=== PATIENT | female | born 1960 | race Caucasian/White ===

== ENCOUNTER 2022-08-19 12:56 | Outpatient (REF) | payer MEDICAID, SELFPAY ==
--- NOTE | ~2022-08-19 | MM_ITS ---
EXAMINATION: MM SCREENING DIGITAL BREAST TOMOSYNTHESIS, BILATERAL CLINICAL INFORMATION: Screening. Asymptomatic. The lifetime risk of breast cancer based on the Tyrer-Cuzick Model is 4%. COMPARISON: Mammography: 07/16/2018, 02/14/2017, 08/14/2015 TECHNIQUE: Digital breast tomosynthesis is performed in both the craniocaudal and mediolateral oblique views along with computer-aided detection (CAD). Synthesized 2D images are generated from the tomosynthesis. FINDINGS: There are scattered areas of fibroglandular density (ACR BI-RADS breast composition Category b). Parenchymal pattern is similar to prior studies. There is no developing density or interval mass or architectural abnormality or abnormal calcifications. Small nodular asymmetry anterior upper right breast on MLO view is stable to decreased. The axilla and skin contours are unremarkable. No significant changes. MM/MM tomosynthesis screening BI IMPRESSION: No mammographic evidence of malignancy. ASSESSMENT: BI-RADS 2: Benign RECOMMENDATION: Routine annual mammography screening. This patient's information was entered into a reminder system with a target due date for their next mammogram.
== END 2022-08-19 12:57 | disposition home or self-care (01) ==
LOC: HO.MAMMO 12:56
PROVIDERS: Visit Provider Family Medicine
DX: Z12.31 Encounter for screening mammogram for malignant neoplasm of breast (principal)
CPT/HCPCS: 77063; 77067

== ENCOUNTER 2023-09-15 09:28 | Outpatient (REF) | payer MEDICAID, SELFPAY ==
--- NOTE | ~2023-09-15 | MM_ITS ---
EXAMINATION: MM SCREENING DIGITAL BREAST TOMOSYNTHESIS, BILATERAL CLINICAL INFORMATION: Screening. Asymptomatic. COMPARISON: Mammography: This study is compared with prior exams dating back to 15 a TECHNIQUE: Digital breast tomosynthesis is performed in both the craniocaudal and mediolateral oblique views along with computer-aided detection (CAD). Synthesized 2D images are generated from the tomosynthesis. FINDINGS: The breasts are almost entirely fatty (ACR BI-RADS breast composition Category a). There are no significant masses, abnormal calcifications, or other abnormalities. MM/MM tomosynthesis screening BI IMPRESSION: No mammographic evidence of malignancy. ASSESSMENT: BI-RADS BI-RADS 1 - Negative RECOMMENDATION: Routine annual mammography screening. 1 year F/U This examination should not preclude the clinical evaluation of a suspicious palpable abnormality. This patient's information was entered into a reminder system with a target due date for their next mammogram.
== END 2023-09-15 09:29 | disposition home or self-care (01) ==
LOC: HO.MAMMO 09:28
PROVIDERS: Visit Provider Family Medicine
DX: Z12.31 Encounter for screening mammogram for malignant neoplasm of breast (principal)
CPT/HCPCS: 77063; 77067

== ENCOUNTER → 2023-09-15 10:15 | Outpatient (BNV) | payer MEDICAID, SELFPAY | PROVIDERS: Visit Provider Radiology Diagnostic Radiology | DX: Z12.31 Encounter for screening mammogram for malignant neoplasm of breast (principal) | CPT/HCPCS: 77063; 77067 ==

== ENCOUNTER 2024-03-22 22:54 | Emergency (ER) | payer OTHER, SELFPAY ==
[2024-03-22 23:06] VITALS: BP 160/68; PULSE 90; O2SAT 97
[2024-03-22 23:12] VITALS: BP 153/74; PULSE 89; RESP 17; TEMP 36.8; O2SAT 98
[2024-03-22 23:14] VITALS: BP 153/74; PULSE 79; RESP 16; TEMP 36.8; O2SAT 96; BMI 25.0
--- NOTE | 2024-03-22 23:49 | ECG_ITS ---
Test Reason : dizzy Blood Pressure : / mmHG Vent. Rate : 075 BPM Atrial Rate : 075 BPM P-R Int : 170 ms QRS Dur : 076 ms QT Int : 388 ms P-R-T Axes : 054 056 055 degrees QTc Int : 433 ms Normal sinus rhythm Normal ECG When compared with ECG of 31-JUL-2017 19:52, No significant change was found Referred By: Janki Mcginnis Electronically Signed By:ARIN ODOM
--- NOTE | 2024-03-22 23:50 | ED_ITS ---
HPI - General Adult General Chief complaint: General Medical Stated complaint: HTN Time Seen by Provider: 03/22/24 23:16 History of Present Illness HPI narrative: Patient is a 64-year-old female with a history of hypertension. Baseline is on lisinopril for hypertension. Patient has been compliant with his medications. Presented today with having measure her own blood pressure the top number was 160 she forgot the bottom number. Because of the elevated blood pressure she came to the ED she also complaining of some dry mouth. There is no chest pain has no headache. There has no dizziness. There has no nausea no vomiting no focal weakness. Patient's blood pressure medicine has been unchanged. She has been compliant with her meds. Related Data Allergies Allergy/AdvReac Type Severity Reaction Status Date / Time iodine [Iodine] Allergy Mild UNKNOWN Verified 03/22/24 23:16 merbromin Allergy Mild BLISTERS Verified 03/22/24 23:16 [From Mercurochrome] calamine [CALAMINE] Allergy Unknown UNKNOWN Verified 03/22/24 23:16 Review of Systems 2 Review of Systems: Positive headache Yes all other systems are reviewed and are negative [facility] Past Medical History Attestation statement: The following information was validated with the patient. Social History Social History Do you have a plan to hurt others: No Plan Physical Exam ED Vital Signs: Vital Signs - 24 hr 03/22/24 23:12 03/22/24 23:14 03/23/24 00:38 Temperature 98.2 F 98.2 F 98.2 F Pulse Rate 89 79 73 Respiratory Rate 17 16 17 Blood Pressure 153/74 H 153/74 H 139/73 Pulse Oximetry 98 96 99 Oxygen Delivery Method Room Air Room Air Room Air BMI result Body Mass Index 25.0 Appearance: Alert. Oriented X3. No acute distress. Eyes: Pupils equal, round and reactive to light. ENT: Pharynx normal. Neck: Normal inspection. Neck supple. No lymph nodes noted. No crepitus CVS: Normal heart rate and rhythm. Pulses normal. Normal S1 and S2 Respiratory: No respiratory distress. Breath sounds normal. No Wheezing. No rales Abdomen: Soft and nontender. No rigidity. No distention. good BS x4 Skin: Skin warm and dry. Normal skin color. Normal skin turgor. Extremities: No lower extremity edema. Neurovascular intact to all extremities. No Lacerations. No Rash Neuro: Oriented X 3. No motor deficit. No sensory deficit. Moving all extermities. No slurred speech Medical Decision Making Medical Decision Making [facility] Narrative: Patient monitored in the emergency department. Creatinine is normal. White count is normal hemoglobin is normal my interpretation of patient's EKG showed a sinus rhythm heart rate is 70 OR QRS QTC normal no acute ST segment elevation. On recheck patient's blood pressure is now 139/74 will discharge patient home continue current med Differential Diagnosis Differential Diagnoses: The differential diagnosis associated with the presentation includes Hypertensive urgency hypertensive emergency, hypertension Lab Data [facility] Lab Attestation statement: I reviewed the patient's lab results. 03/23/24 00:10 03/23/24 00:10 Labs: Lab Results 03/23/24 Range/Units 00:10 WBC 9.7 (4.8-10.8) X10*3/uL RBC 4.28 (4.20-5.50) X10*6/uL Hgb 11.9 L (12.0-16.0) g/dl Hct 36.7 L (37.0-47.0) % MCV 85.7 (80.0-98.0) fL MCH 27.8 (27.0-33.0) pg MCHC 32.4 (31.0-35.0) g/dl RDW 12.9 (11.0-16.0) % Plt Count 362 (160-400) X10*3/uL MPV 10.0 (9.4-12.3) fL Immature Gran % (Auto) 0.9 H (0.0-0.4) % Neut % (Auto) 68.6 (45-73) % Lymph % (Auto) 19.8 L (20-40) % Bremer % (Auto) 8.4 (2-11) % Eos % (Auto) 1.7 (0-4) % Baso % (Auto) 0.6 (0-2) % Lymph # (Auto) 1.9 (1.2-4.9) X10*3/uL Bremer # (Auto) 0.8 (0.1-1.2) X10*3/uL Eos # (Auto) 0.2 (0.0-0.4) X10*3/uL Baso # (Auto) 0.1 (0.0-0.2) X10*3/uL Abs Immat Gran (auto) 0.09 H (0.00-0.03) X10*3/uL Absolute Neuts (auto) 6.6 (2.0-8.3) x10*3/uL Absolute Nucleated RBC 0.000 (0.0-0.012) X10*3/uL Nucleated RBC % (auto) 0.0 (0.0-0.2) /100WBC Sodium 139 (135-145) mmol/L Potassium 3.9 (3.3-5.1) mmol/L Chloride 106 (96-108) mmol/L Carbon Dioxide 24 (22-29) mmol/L Anion Gap 13 (12-20) BUN 18 H (9-16) mg/dL Creatinine 0.81 (0.5-1.4) mg/dL Estim Creat Clear Calc 62.3 Estimated GFR > 60 Random Glucose 203 H (60-115) mg/dL Calcium 9.6 (8.4-10.2) mg/dL Independent Interpretation I performed an independent interpretation of an: EKG (Sinus heart rate is 70 OR QRS QTC normal no acute ST segment elevation) Chronic Conditions Patient?s care impacted by: Other (Hypertension, hypercholesterolemia, diabetes) Discharge Plan Discharge Clinical Impression: Hypertension Patient Disposition: Home, Self-Care Instructions: Hypertension (ED) Additional Instructions: Please continue to take your blood pressure medicine Referrals: [facility] [Provider Group] - 03/25/24 Print Language: Belizean
[2024-03-23 00:18] LABS: MANUAL DIFF FLAG NO
[2024-03-23 00:21] LABS: Basophils Absolute Auto 0.1 X10*3/uL (0.0-0.2); Basophils Percent Auto 0.6 % (0-2); Eosinophils Absolute Auto 0.2 X10*3/uL (0.0-0.4); Eosinophils Percent Auto 1.7 % (0-4); Hematocrit 36.7 % (37.0-47.0); Hemoglobin 11.9 g/dl (12.0-16.0); Imm Gran Abs Auto 0.09 X10*3/uL (0.00-0.03); Imm Gran Pct Auto 0.9 % (0.0-0.4); Lymphocytes Absolute Auto 1.9 X10*3/uL (1.2-4.9); Lymphocytes Percent Auto 19.8 % (20-40); Mean Corpuscular HGB Conc 32.4 g/dl (31.0-35.0); Mean Corpuscular Hemoglobin 27.8 pg (27.0-33.0); Mean Corpuscular Volume 85.7 fL (80.0-98.0); Monocytes Absolute Auto 0.8 X10*3/uL (0.1-1.2); Monocytes Percent Auto 8.4 % (2-11); Neutrophils Absolute Auto 6.6 x10*3/uL (2.0-8.3); Neutrophils Percent Auto 68.6 % (45-73); Platelet Count 362 X10*3/uL (160-400); Red Blood Count 4.28 X10*6/uL (4.20-5.50); Red Cell Distribution Width 12.9 % (11.0-16.0); White Blood Count 9.7 X10*3/uL (4.8-10.8)
[2024-03-23 00:32] LABS: Anion Gap 13 (12-20); Blood Urea Nitrogen 18 mg/dL (9-16); Calcium 9.6 mg/dL (8.4-10.2); Carbon Dioxide 24 mmol/L (22-29); Chloride 106 mmol/L (96-108); Creatinine Clr Calc Pharmacy 62.3; Estimated Glomerular Filt Rate > 60; Glucose Random 203 mg/dL (60-115); Potassium 3.9 mmol/L (3.3-5.1); Sodium 139 mmol/L (135-145)
[2024-03-23 00:38] VITALS: BP 139/73; PULSE 73; RESP 17; TEMP 36.8; O2SAT 99
[2024-03-23 01:56] VITALS: BP 141/69; PULSE 77; RESP 14; TEMP 36.5; O2SAT 98
== END 2024-03-23 01:40 | disposition home or self-care (01) ==
PROVIDERS: Emergency Provider Emergency Medicine Emergency Medical Services
DX: I10 Essential (primary) hypertension (principal); R51.9 Headache, unspecified; E11.9 Type 2 diabetes mellitus without complications; E78.00 Pure hypercholesterolemia, unspecified
CPT/HCPCS: 36415; 80048; 85025; 93005; 99283; 99284

== ENCOUNTER → 2024-03-22 23:49 | Outpatient (BNV) | payer MEDICARE, MEDICAID, SELFPAY | PROVIDERS: Emergency Provider Emergency Medicine Emergency Medical Services; Visit Provider Internal Medicine | DX: R42 Dizziness and giddiness (principal) | CPT/HCPCS: 93010 ==

== ENCOUNTER 2024-05-14 09:20 | Outpatient (REF) | payer OTHER, SELFPAY ==
--- NOTE | 2024-05-14 09:38 | EMG_ITS ---
Bilateral median and ulnar motor and sensory studies were performed. Bilateral radial sensory studies were performed and paraspinal muscles were tested with a needle. IMPRESSION: This is an unremarkable study with no evidence of median or ulnar neuropathy. MD SIGIFREDO Hernandez/LIDIA / [id number]
== END 2024-05-14 09:21 | disposition home or self-care (01) ==
LOC: HO.NEURO 09:20
PROVIDERS: PCP Family Medicine; Visit Provider Family Medicine
DX: R20.2 Paresthesia of skin (principal)
CPT/HCPCS: 95886; 95911

== ENCOUNTER 2024-05-15 07:58 | Outpatient (REF) | payer OTHER, SELFPAY ==
[2024-05-15 11:55] LABS: Hematocrit 39.8 % (37.0-47.0); Hemoglobin 12.9 g/dl (12.0-16.0); Mean Corpuscular HGB Conc 32.4 g/dl (31.0-35.0); Mean Corpuscular Hemoglobin 27.9 pg (27.0-33.0); Mean Platelet Volume 10.6 fL (9.4-12.3); Platelet Count 396 X10*3/uL (160-400); Red Blood Count 4.63 X10*6/uL (4.20-5.50); Red Cell Distribution Width 13.3 % (11.0-16.0); White Blood Count 6.8 X10*3/uL (4.8-10.8)
[2024-05-15 12:31] LABS: Estimated Average Glucose 166 mg/dL; Hemoglobin A1c % 7.4 % (<6.0)
[2024-05-15 12:43] LABS: Erythrocyte Sedimentation Rate 17 MM/HR (0-20); Rheumatoid Factor < 13.0 IU/mL (<15.0)
[2024-05-15 12:50] LABS: Alanine Aminotransferase 16 U/L (0-31); Albumin Level 4.4 g/dL (3.5-5.0); Alkaline Phosphatase 68 U/L (39-117); Anion Gap 16 (12-20); Aspartate Amino Transferase 18 U/L (5-31); Bilirubin Direct 0.2 mg/dL (0.0-0.5); Bilirubin Total 0.4 mg/dL (0.0-1.0); Blood Urea Nitrogen 14 mg/dL (9-16); C Reactive Protein 0.31 mg/dL (< or = 0.50); Calcium 9.8 mg/dL (8.4-10.2); Carbon Dioxide 23 mmol/L (22-29); Chloride 106 mmol/L (96-108); Cholesterol 183 mg/dL (<200); Estimated Glomerular Filt Rate > 60; Glucose Random 138 mg/dL (60-115); HDL Cholesterol 48 mg/dL (>40); LDL Cholesterol Calculated 98 mg/dL (<100); Potassium 4.1 mmol/L (3.3-5.1); Sodium 141 mmol/L (135-145); Total Protein 7.6 g/dL (6.5-8.0); Triglycerides 188 mg/dL (<150)
[2024-05-15 12:57] LABS: Free T4 (Free Thyroxine) 1.04 ng/dL (0.71-1.85); Thyroid Stimulating Hormone 2.15 uIU/mL (0.32-4.0); Vitamin D 25-OH Total 48.2 ng/mL (>30)
[2024-05-16 04:57] LABS: HBS Num1 10.34 mIU/mL (0-7.99); HBsAGNum1 0.23 S/CO (0.00-0.99); HIV AB/AG Nonreactive (Nonreactive); HIV Num 1 0.06 S/CO (0.00-0.99); Hepatitis B Surface Antigen Negative (Negative); ~HepC Num1 0.24 S/CO (0.00-0.79); ~Hepatitis C Antibody Nonreactive (Nonreactive)
[2024-05-16 05:11] LABS: Hepatitis A Antibody IgG REACTIVE (Nonreactive); ~Hepatitis A Antibody IgG 11.88 S/CO (0.00-0.99)
[2024-05-16 05:39] LABS: HBS Num2 10.44 mIU/mL (0-7.99); HBS Num3 11.13 mIU/mL (0-7.99); HBc Num2 3.65 S/CO; Hepatitis B Core Antibody Reactive (Nonreactive); ~Hepatitis B Surface Antibody GRAYZONE (Nonreactive)
[2024-05-16 10:58] LABS: Lyme Abs Screen <0.90 index
[2024-05-17 08:43] LABS: RPR Rapid Plasma Reagin NON-REACTIVE (NON-REACTIVE)
[2024-05-17 22:14] LABS: Hepatitis B Core Antibody IgM NON-REACTIVE (NON-REACTIVE)
[2024-05-20 14:13] LABS: Anti Nuclear Antibody Screen NEGATIVE (NEGATIVE)
== END 2024-05-15 07:59 | disposition home or self-care (01) ==
LOC: HO.HHCL 07:58
PROVIDERS: Visit Provider Family Medicine
DX: Z00.00 Encounter for general adult medical examination without abnormal findings (principal); E11.69 Type 2 diabetes mellitus with other specified complication; M25.50 Pain in unspecified joint
CPT/HCPCS: 36415; 80048; 80061; 80076; 82306; 83036; 84439; 84443; 85027; 85652; 86038; 86140; 86431; 86592; 86617; 86618; 86704; 86705; 86706; 86708; 86803; 87340; 87389

== ENCOUNTER 2024-06-03 10:51 | Outpatient (REF) | payer OTHER, SELFPAY ==
--- NOTE | ~2024-06-03 | XR_ITS ---
EXAMINATION: XR LUMBAR SPINE XR LEFT KNEE XR RIGHT KNEE XR LEFT HAND XR RIGHT HAND CLINICAL INFORMATION: Polyarthralgia. Worsening hand, knee and low back pain. COMPARISON: 04/15/2019 and 01/17/2019 TECHNIQUE: PA, lateral and oblique views of each hand were obtained. AP, lateral, sunrise and tunnel views of each knee were obtained. AP and lateral views of the lumbar spine were obtained. FINDINGS: Bilateral hands: Alignment is anatomic. Mild diffuse interphalangeal joint space narrowing with marginal osteophytes. No bony erosions. No abnormal soft tissue calcifications. No change in possible old fracture deformity of left fifth metacarpal. Bilateral knees: Mild to moderate lateral tibiofemoral and patellofemoral cartilage space loss with marginal kidneys. Quadriceps tendon enthesophytes. No significant joint effusion. Lumbar spine: There are 5 nonrib-bearing lumbar vertebral bodies. Normal sagittal alignment. Vertebral body heights are maintained. Intervertebral disc spaces are preserved. Surgical clips project over the right upper quadrant. XR/XR hand RT min 3V IMPRESSION: As above.
--- NOTE | ~2024-06-03 | XR_ITS ---
EXAMINATION: XR LUMBAR SPINE XR LEFT KNEE XR RIGHT KNEE XR LEFT HAND XR RIGHT HAND CLINICAL INFORMATION: Polyarthralgia. Worsening hand, knee and low back pain. COMPARISON: 04/15/2019 and 01/17/2019 TECHNIQUE: PA, lateral and oblique views of each hand were obtained. AP, lateral, sunrise and tunnel views of each knee were obtained. AP and lateral views of the lumbar spine were obtained. FINDINGS: Bilateral hands: Alignment is anatomic. Mild diffuse interphalangeal joint space narrowing with marginal osteophytes. No bony erosions. No abnormal soft tissue calcifications. No change in possible old fracture deformity of left fifth metacarpal. Bilateral knees: Mild to moderate lateral tibiofemoral and patellofemoral cartilage space loss with marginal kidneys. Quadriceps tendon enthesophytes. No significant joint effusion. Lumbar spine: There are 5 nonrib-bearing lumbar vertebral bodies. Normal sagittal alignment. Vertebral body heights are maintained. Intervertebral disc spaces are preserved. Surgical clips project over the right upper quadrant. XR/XR knee LT 4V IMPRESSION: As above.
--- NOTE | ~2024-06-03 | XR_ITS ---
EXAMINATION: XR LUMBAR SPINE XR LEFT KNEE XR RIGHT KNEE XR LEFT HAND XR RIGHT HAND CLINICAL INFORMATION: Polyarthralgia. Worsening hand, knee and low back pain. COMPARISON: 04/15/2019 and 01/17/2019 TECHNIQUE: PA, lateral and oblique views of each hand were obtained. AP, lateral, sunrise and tunnel views of each knee were obtained. AP and lateral views of the lumbar spine were obtained. FINDINGS: Bilateral hands: Alignment is anatomic. Mild diffuse interphalangeal joint space narrowing with marginal osteophytes. No bony erosions. No abnormal soft tissue calcifications. No change in possible old fracture deformity of left fifth metacarpal. Bilateral knees: Mild to moderate lateral tibiofemoral and patellofemoral cartilage space loss with marginal kidneys. Quadriceps tendon enthesophytes. No significant joint effusion. Lumbar spine: There are 5 nonrib-bearing lumbar vertebral bodies. Normal sagittal alignment. Vertebral body heights are maintained. Intervertebral disc spaces are preserved. Surgical clips project over the right upper quadrant. XR/XR knee RT 4V IMPRESSION: As above.
--- NOTE | ~2024-06-03 | XR_ITS ---
EXAMINATION: XR LUMBAR SPINE XR LEFT KNEE XR RIGHT KNEE XR LEFT HAND XR RIGHT HAND CLINICAL INFORMATION: Polyarthralgia. Worsening hand, knee and low back pain. COMPARISON: 04/15/2019 and 01/17/2019 TECHNIQUE: PA, lateral and oblique views of each hand were obtained. AP, lateral, sunrise and tunnel views of each knee were obtained. AP and lateral views of the lumbar spine were obtained. FINDINGS: Bilateral hands: Alignment is anatomic. Mild diffuse interphalangeal joint space narrowing with marginal osteophytes. No bony erosions. No abnormal soft tissue calcifications. No change in possible old fracture deformity of left fifth metacarpal. Bilateral knees: Mild to moderate lateral tibiofemoral and patellofemoral cartilage space loss with marginal kidneys. Quadriceps tendon enthesophytes. No significant joint effusion. Lumbar spine: There are 5 nonrib-bearing lumbar vertebral bodies. Normal sagittal alignment. Vertebral body heights are maintained. Intervertebral disc spaces are preserved. Surgical clips project over the right upper quadrant. XR/XR lumbar spine 2-3V IMPRESSION: As above.
--- NOTE | ~2024-06-03 | XR_ITS ---
EXAMINATION: XR LUMBAR SPINE XR LEFT KNEE XR RIGHT KNEE XR LEFT HAND XR RIGHT HAND CLINICAL INFORMATION: Polyarthralgia. Worsening hand, knee and low back pain. COMPARISON: 04/15/2019 and 01/17/2019 TECHNIQUE: PA, lateral and oblique views of each hand were obtained. AP, lateral, sunrise and tunnel views of each knee were obtained. AP and lateral views of the lumbar spine were obtained. FINDINGS: Bilateral hands: Alignment is anatomic. Mild diffuse interphalangeal joint space narrowing with marginal osteophytes. No bony erosions. No abnormal soft tissue calcifications. No change in possible old fracture deformity of left fifth metacarpal. Bilateral knees: Mild to moderate lateral tibiofemoral and patellofemoral cartilage space loss with marginal kidneys. Quadriceps tendon enthesophytes. No significant joint effusion. Lumbar spine: There are 5 nonrib-bearing lumbar vertebral bodies. Normal sagittal alignment. Vertebral body heights are maintained. Intervertebral disc spaces are preserved. Surgical clips project over the right upper quadrant. XR/XR hand LT min 3V IMPRESSION: As above.
== END 2024-06-03 10:52 | disposition home or self-care (01) ==
LOC: HO.HHCX 10:51
PROVIDERS: Visit Provider Family Medicine
DX: M54.50 Low back pain, unspecified (principal); M25.561 Pain in right knee; M25.562 Pain in left knee; M79.642 Pain in left hand; M79.641 Pain in right hand
CPT/HCPCS: 72100; 73130; 73564

== ENCOUNTER 2024-06-25 09:48 | Outpatient (REF) | payer OTHER, SELFPAY ==
[2024-06-25 13:18] LABS: CT PCR NOT DETECTED (Not Detect.); NG PCR NOT DETECTED (Not Detect.)
== END 2024-06-25 09:49 | disposition home or self-care (01) ==
LOC: HO.HHCL 09:48
PROVIDERS: Visit Provider Family Medicine
DX: Z00.00 Encounter for general adult medical examination without abnormal findings (principal)
CPT/HCPCS: 87491; 87591

== ENCOUNTER 2025-07-31 14:19 | Outpatient (REF) | payer OTHER, SELFPAY ==
--- NOTE | ~2025-07-31 | XR_ITS ---
EXAMINATION: XR RIBS, LEFT CLINICAL INFORMATION: fall 1 week ago , left anterior axillary pain. COMPARISON: 04/16/2019. TECHNIQUE: PA chest, and 3 views of the left ribs were obtained. FINDINGS: Lungs are clear. No consolidation, pneumothorax, or pleural effusion. The cardiomediastinal silhouette and pulmonary vasculature are normal. Osseous structures are unremarkable. Ribs are intact. No acute fractures are identified. Old healed left ninth rib fracture noted. XR/XR ribs LT min 3V w CXR1V IMPRESSION: The lungs are clear. There are no acute findings in the thorax. The ribs appear intact. Electronically signed by: Rusty Pierce MD 07/31/2025 03:11 PM EDT
== END 2025-07-31 14:20 | disposition home or self-care (01) ==
LOC: HO.HHCX 14:19
PROVIDERS: Visit Provider Nurse Practitioner Family
DX: Z91.81 History of falling (principal)
CPT/HCPCS: 71101

== ENCOUNTER → 2025-07-31 14:19 | Outpatient (BNV) | payer OTHER, SELFPAY | PROVIDERS: Visit Provider Radiology Diagnostic Radiology | DX: M79.622 Pain in left upper arm (principal); W19.XXXA Unspecified fall, initial encounter | CPT/HCPCS: 71101 ==

== ENCOUNTER 2025-08-22 10:15 | Outpatient (REF) | payer OTHER, SELFPAY ==
--- OUTSIDE RECORDS SUMMARY | 2025-08-20 11:00 | XMS_ITS | Encounter Summary ---
Author Organization [employer] Address [address] [place] [address] Care Team Providers Care Edge Runner Name Role Phone Rosibel Walker DO Primary Care Provider Maribell Gan PharmD Unavailable [phone] Reason for Visit * Reason Comments Headache Encounter Details Date Type Department Care Team ([facility] st Contact Info) Description 08/20/2025 11:00 AM EDT Office Visit [facility] [address] [place] [address] Beau Kumar MD [address] [place] [address] Type 2 diabetes mellitus without complication, without long-term current use of insulin (HCC) (Primary Dx); Insomnia, unspecified type; Low glucose level; Acute intractable headache, unspecified headache type Social History Tobacco Use Types Packs/Day Years Used Date Smoking Tobacco: Never Passive Smoke Exposure: Never Smokeless Tobacco: Never Tobacco Cessation:Counseling Given: Not Answered Alcohol Use Standard Drinks/Week Comments Defer 0 (1 standard drink = 0.6 oz pur e alcohol) Depression Answer Date Recorded Patient Health Questionnaire-9 Score 16 03/28/2025 Patient Health Questionnaire-9 Score 16 03/28/2025 Last PHQ-9: Questionnaire Data Not on file 0 03/28/2025 Housing Stability Answer Date Recorded What is your housing situation today? I have lucas holland 05/08/[address] you li ve. Do you have problems with any of the following? None of the above 05/08/2024 Food Insecurity Answer Date Recorded Within the past 12 months, y ou worried that your food would run out before you got money to buy more: Never True 05/08/2024 Within the past 12 months,th e food you bought just didn't last and you didn't have enough money to get more: Never True Transportation Answer Date Recorded In the past 12 months, has l ack of transportation kept you from medical appts, meetings, work or from getting things needed for daily living? No 05/08/2024 Utilities Answer Date Recorded In the past 12 months, has t he electric, gas, oil or water company threatened to shut off services in your home? No 05/08/2024 Depression Answer Date Recorded Patient Health Questionnaire-2 Score 3 03/28/2025 Internet Access Answer Date Recorded Internet Access Q1 Yes 06/21/2024 Internet Access Q2 Not on file 06/21/2024 Comments No Sex and Gender Information Value Date Recorded Sex Assigned at Female 08/22/2022 10:17 AM EDT Legal Sex Female 10:17 AM EDT Gender Identity Female 08/22/2022 10:17 AM EDT Sexual Orientation Straight 08/22/2022 10 :17 AM EDT documented as of this encounter Last Filed Vital Signs Vital Sign Reading Time Taken Comments Blood Pressure 146/80 08/20/2025 11:03 AM EDT Pulse 92 08/20/2025 11:03 AM EDT Temperature 36.7 C (98 F) 08/20/2025 11:03 AM EDT Respiratory Rate 16 08/20/2025 11:03 AM EDT Oxygen Saturation 96% 08/20/2025 11:03 AM EDT Inhaled Oxygen Concentration - - Weight 68.5 kg (151 lb) 08/20/2025 11:03 AM EDT Height - - Body Mass Index 31.56 07/31/2025 1:24 PM EDT documented in this encounter Progress Notes * Beau Kumar MD - 08/20/2025 11:00 AM EDT Subjective Patient ID: Magalis Brown is a 65 y.o. female. Processing Tech: Jensen VIVAR 2 days ago woke at 3 AM, checked CGM=69. Last night Magalis woke at 3 AM, checked her CGM=68. Has had diffuse headache since waking 2 days ago. States that she thinks her headaches are from lack of sleep, which has happened before. No fever, chills, n/v/d. CGM =199 now in [facility] POC KV=251 now in [facility] Lives alone. Not employed. Never smoked. No EtOH. Patient Active Problem List Diagnosis Date Noted Rib pain on left side 08/01/2025 Fall 08/01/2025 Ill-fitting dentures 11/07/2024 Healthcare maintenance 11/06/2024 Moderate atrophy of the maxilla 09/11/2024 Complete edentulism 05/07/2024 BMI 31.0-31.9,adult 12/28/2023 Vitamin D deficiency 12/28/2023 Severe episode of recurrent major depressive disorder, without psychotic features ([facility]) 10/25/2023 Osteoarthritis of both knees 03/10/2023 Chronic pain of both knees 03/16/2018 Anxiety 02/23/2016 Chronic bipolar disorder ([facility]) 12/21/2015 Essential hypertension 12/21/2015 Chronic gastroesophageal reflux disease 12/21/2015 Hyperlipidemia 12/21/2015 Insomnia 12/21/2015 Type 2 diabetes mellitus ([facility]) 12/21/2015 The following portions of the chart were reviewed this encounter and updated as appropriate: Review of Systems Constitutional: Negative for fever. Respiratory: Negative for shortness of breath. Cardiovascular: Negative for chest pain. Gastrointestinal: Negative for abdominal pain. Skin: Negative for rash. Neurological: Positive for headaches. Objective Physical Exam Constitutional: Appearance: Normal appearance. HENT: Right Ear: Tympanic membrane, ear canal and external ear normal. Left Ear: Tympanic membrane, ear canal and external ear normal. Nose: Nose normal. Mouth/Throat: Mouth: Mucous membranes are moist. Pharynx: Oropharynx is clear. Eyes: Conjunctiva/sclera: Conjunctivae normal. Pupils: Pupils are equal, round, and reactive to light. Cardiovascular: Rate and Rhythm: Normal rate and regular rhythm. Heart sounds: No murmur heard. Pulmonary: Effort: Pulmonary effort is normal. Breath sounds: Normal breath sounds. Musculoskeletal: General: Normal range of motion. Cervical back: No tenderness. Skin: Findings: No rash. Neurological: Mental Status: She is alert. Cranial Nerves: Cranial nerves 2-12 are intact. Sensory: Sensation is intact. Motor: Motor function is intact. Gait: Gait is intact. Psychiatric: Mood and Affect: Mood normal. Behavior: Behavior normal. Procedures Assessment/Plan Diagnoses and all orders for this visit: Type 2 diabetes mellitus without complication, without long-term current use of insulin (HCC) In exam room CGM reading was 69 points lower than [id number] blood glucose level. Discussed with Maribell Gan, who sees Magalis for CDTM diabetes management. Continue current medications. Will consider discontinuing glipizide at next appointment on 09/12 depending on blood glucose levels. Insomnia, unspecified type Increased nightly mirtazapine dose from 15 to 30 mg. Return to clinic if not improving. Acute intractable headache, unspecified headache type Angel Luiselvisfaraz states it is related to lack of sleep. Return to clinic if not improving - POCT glucose manually resulted Other orders - mirtazapine (Remeron) 30 MG tablet; Take 1 tablet (30 mg) by mouth at bedtime. Prn sleep documented in this encounter Plan of Treatment Upcoming Encounters Date Type Department Care Team (Late st Contact Info) Description 09/12/2025 11:30 AM EST Medication Management [facility] [address] [place] [address] Maribell Gan, PharmD [address] [place] [address] 10/10/2025 9:00 AM EST Office Visit [facility] [address] [place] [address] Jasson, Adilene, OD [address] [place] [address] documented as of this encounter Goals Goal Patient Goal Type Associated Problems Recent Progress Patient-Stated? Author Patient will adhere to medication regimen General No Maribell Gan, PharmD Hemoglobin A1c < 7 Result Component 7.1( 11:52 AM EDT) No Maribell Gan PharmD Record your blood sugar as directed Result Component No Maribell Gan PharmD documented as of this encounter Procedures Procedure Name Priority Date/Time Associated Diagnosis Comments POCT GLUCOSE Routine 08/20/2025 11:05 AM EDT Low glucose level documented in this encounter Results * (ABNORMAL) POCT glucose manually resulted (08/20/2025 11:05 AM EDT) Glucose Blood, POC 220(A) 60 - 200 mg/dL Blood Capillary blood specimen / Unknown 08/20/2025 11:05 AM EDT Beau Kumar MD POINT OF CARE TEST ENTER/EDIT OR DERABLES Final Result documented in this encounter Visit Diagnoses Diagnosis Type 2 diabetes mellitus without complication, without long-term current use of insulin (HCC)- Primary Insomnia, unspecified type Low glucose level Acute intractable headache, unspecified headache type documented in this encounter Additional Health Concerns Assessment Noted Time PHQ-9 Depression Total Score: 16 025 2:27 PM EDT documented as of this encounter Care Teams Edge Runner Relationship Specialty Start Date End Date Rosibel Walker DO [address] [place] [address] PCP - General Family Medicine 07/07/15 Maribell Gan PharmD [address] [place] [address] Pharmacist Internal Medicine 06/05/24 [facility] 06/18/24 documented as of this encounter
--- NOTE | ~2025-08-22 | MM_ITS ---
EXAMINATION: MM SCREENING DIGITAL BREAST TOMOSYNTHESIS, BILATERAL CLINICAL INFORMATION: Screening. Asymptomatic. COMPARISON: Comparison made to multiple prior, most recent September 15, 2023, and most remote January 10, 2011. TECHNIQUE: Digital breast tomosynthesis is performed in mediolateral oblique and craniocaudal views along with computer-aided detection (CAD). Synthesized 2D images are generated from the tomosynthesis. FINDINGS: BREAST COMPOSITION: There are scattered areas of fibroglandular density. BILATERAL BREASTS: No significant masses, suspicious calcifications or other abnormalities are seen in either breast. MM/MM tomosynthesis screening BI IMPRESSION: BILATERAL BREASTS: Negative, no mammographic evidence of malignancy. Normal interval follow-up is recommended in 12 months. ASSESSMENT: BI-RADS: Category 1: Negative RECOMMENDATION: Routine annual mammography screening. FOLLOW-UP: 1 year F/U This examination should not preclude the clinical evaluation of a suspicious palpable abnormality. This patient's information was entered into a reminder system with a target due date for their next mammogram. Electronically signed by: Sanjay Chauhan MD 08/24/2025 01:15 PM [facility]
--- OUTSIDE RECORDS SUMMARY | 2025-08-22 11:35 | XMS_ITS | Encounter Summary ---
Author Organization [employer] Address [address] [place] [address] Care Team Providers Care Top Hat Body Maker Name Role Phone Rosibel Walker DO Primary Care Provider Maribell Gan PharmD Unavailable [phone] Reason for Visit * Reason Comments Med Refill Encounter Details Date Type Department Care Team (Late st Contact Info) Description 02/26/2025 Refill [facility] [address] [place], [place] [id number] Rosibel Walker DO [address] [facility] [place], [place] [phone] Type 2 diabetes mellitus with other specified complication, unspecified whether long-term insulin use ([facility]) Social History Tobacco Use Types Packs/Day Years Used Date Smoking Tobacco: Never Passive Smoke Exposure: Never Smokeless Tobacco: Never Alcohol Use Standard Drinks/Week Comments Defer 0 (1 standard drink = 0.6 oz pur e alcohol) Depression Answer Date Recorded Patient Health Questionnaire-9 Score 22 11/08/2024 Patient Health Questionnaire-9 Score 22 11/08/2024 Last PHQ-9: Questionnaire Data Not on file 0 11/08/2024 Housing Stability Answer Date Recorded What is your housing situation today? I have luacs holladn 05/08/[address] you li [...] Answer Date Recorded Patient Health Questionnaire-2 Score 6 11/08/2024 Internet Access Answer Date Recorded Internet Access Q1 Yes 06/21/2024 Internet Access Q2 Not on file 06/21/2024 Comments No Sex and Gender Information Value Date Recorded Sex Assigned at Female 08/22/2022 10:17 AM EDT Legal Sex Female 10:17 AM EDT Gender Identity Female 08/22/2022 10:17 AM EDT Sexual Orientation Straight 08/22/2022 10 :17 AM EDT documented as of this encounter Plan of Treatment Upcoming Encounters Date Type Department Care Team (Late st Contact Info) Description 09/12/2025 11:30 AM EST Medication Management [facility] MEDICINE [address] [place] [address] Puia, Maribell, PharmD [address] [place] [address] 10/10/2025 9:00 AM EST Office Visit [facility] [address] [place] [address] Jasson, Adilene, OD [address] [place] [address] documented as of this encounter Goals Goal Patient Goal Type Associated Problems Recent Progress Patient-Stated? Author Patient will adhere to medication regimen General No Puia, Maribell, PharmD Hemoglobin A1c < 7 Result Component 7.1( 11:52 AM EDT) No Puia, Maribell, PharmD Record your blood sugar as directed Result Component No Puia, Maribell, PharmD documented as of this encounter Visit Diagnoses Diagnosis Type 2 diabetes mellitus with other specified complication, unspecified whether rn long term care insulin use (HCC) documented in this encounter Additional Health Concerns Assessment Noted Time PHQ-9 Depression Total Score: 22 025 9:11 AM EST documented as of this encounter Care Teams Top Hat Body Maker Relationship Specialty Start Date End Date Rosibel Walker DO [address] [place] [address] PCP - General Family Medicine 07/07/15 Maribell Gan PharmD [address] [place] [address] Pharmacist Internal Medicine 06/05/24 [facility] 06/18/24 documented as of this encounter
--- OUTSIDE RECORDS SUMMARY | 2025-08-22 11:35 | XMS_ITS | Encounter Summary ---
Author Organization [employer] [facility] Address [address] [place] [address] [address] [place] [address] Care Team Providers Care Kennel Attendant Name Role Phone Rosibel Walker DO Primary Care Provider PuMaribell knight PharmD Unavailable [phone] Encounter Details Date Type Department Care Team (Late st Contact Info) Description 11/24/2022 Orders Only [facility] MEDICINE [address] [place] [address] Maylin Martinez LPN Social History Tobacco Use Types Packs/Day Years Used Date Smoking Tobacco: Never Assessed Comments Unknown Sex and Gender Information Value Date Recorded Sex Assigned at Female 08/22/2022 10:17 AM EDT Legal Sex Female 10:17 AM EDT Gender Identity Female 08/22/2022 10:17 AM EDT Sexual Orientation Straight 08/22/2022 10 :17 AM EDT documented as of this encounter Plan of Treatment Upcoming Encounters Date Type Department Care Team (Late st Contact Info) Description 09/12/2025 11:30 AM EST Medication Management [facility] MEDICINE [address] [place] [address] PuiaAbdiMaribell, PharmD [address] [place] [address] 10/10/2025 9:00 AM EST Office Visit [facility] OPTOMETRY [address] [place] [address] Adilene Spaulding, OD [address] [place] [address] documented as of this encounter Visit Diagnoses Not on filedocumented in this encounter Care Teams Kennel Attendant Relationship Specialty Start Date End Date Rosibel Walker DO [address] [place] [address] PCP - General Family Medicine 07/07/15 Maribell Gan, Homero [address] [place] [address] Pharmacist Internal Medicine 06/05/24 [facility] 06/18/24 documented as of this encounter
--- OUTSIDE RECORDS SUMMARY | 2025-08-22 11:35 | XMS_ITS | Encounter Summary ---
Author Organization [facility] [facility] Address [address] [place] [address] [address] [place] [address] Care Team Providers Care Story Writer Name Role Phone Rosibel Walker DO Primary Care Provider PuMaribell knight PharmD Unavailable Reason for Visit * Reason Comments Med Refill Encounter Details Date Type Department Care Team ([facility] Contact Info) Description 05/01/2023 Refill [facility] MED[facility]INE [address] [place] [address] Chandana Belle FNP Mood disorder (CMS/[facility]) Social History Tobacco Use Types Packs/Day Years Used Date Smoking Tobacco: Never Assessed Comments Unknown Sex and Gender Information Value Date Recorded Sex Assigned at Female 08/22/2022 10:17 AM EDT Legal Sex Female 10:17 AM EDT Gender Identity Female 08/22/2022 10:17 AM EDT Sexual Orientation Straight 08/22/2022 10 :17 AM EDT COVID-19 Exposure Response Date Recorded In the last 10 days, have yo u been in contact with someone who was confirmed or suspected to have Coronavirus/COVID-19? No / Unsure 04/28/2023 1:49 PM EDT documented as of this encounter Plan of Treatment Upcoming Encounters Date Type Department Care Team ([facility] Contact Info) Description 09/12/2025 11:30 AM EST Medication Management [facility] MEDICINE [address] [place] [address] PuiaAbdiMaribell, PharmD [address] [place] [address] 10/10/2025 9:00 AM EST Office Visit [facility] OPTOMETRY [address] [place] [address] Adilene Spaulding, OD [address] [place] [address] documented as of this encounter Visit Diagnoses Diagnosis Mood disorder (CMS/HCC) Unspecified episodic mood disorder documented in this encounter Care Teams Story Writer Relationship Specialty Start Date End Date Rosibel Walker DO [address] [place], [place] [phone] PCP - General Family Medicine 07/07/15 Maribell Gan PharmD [address] [place], [place] [phone] Pharmacist Internal Medicine 06/05/24 [facility] 06/18/24 documented as of this encounter
--- OUTSIDE RECORDS SUMMARY | 2025-08-22 11:35 | XMS_ITS | Clinical Summary ---
Author Organization [employer] Address [address] [facility] [address] [place] [address] Care Team Providers Care Medical Billing And Coding Instructor Name Role Phone Rosibel Walker DO Primary Care Provider Maribell Gan PharmD Unavailable [phone] Allergies Active Allergy Reactions Criticality Noted Date Comments Mercury 11/16/2010 Other reaction(s): unspecified Medications * This document contains information received from the source organization and may not represent a complete record from that organization. Diclofenac Sodium 1 % gelIndications: Pain Apply 2 g topically if needed in the morning, at noon, in the evening, and at bedtime (pain). 150 g 3 05/08/20 24 Active baclofen (Lioresal) 5 MG tablet TAKE 1 TABLET BY MOUTH THREE TIMES DAILY IN THE MORNING, AT NOON, AND AT BEDTIME NEEDED FOR MUSCLE SPASMS 60 tablet 2 08/08/20 24 Active cetirizine (ZyrTEC) 10 MG tablet Take 1 tablet (10 mg) by mouth Once per day. 30 tablet 11 11/06/19 25 026 Active Alcohol Swabs (Alcohol Prep) 70 % padsIndications :Type 2 diabetes mellitus with other specified complication, unspecified whether long-term insulin use (HCC) USE DIRECTED 100 each 11 01/08/20 25 Active glucose blood (FREESTYLE LITE) test stripIndication s:Type 2 diabetes mellitus with other specified complication, unspecified whether long-term insulin use (HCC) USE DIRECTED TO TEST BLOOD SUGAR TWICE DAILY 100 strip 11 01/15/20 25 Active aspirin 81 MG EC tabletIndicatio ns:Type 2 diabetes mellitus with other specified complication, unspecified whether long-term insulin use (HCC) Take 1 tablet (81 mg) by mouth Once per day. 90 tablet 3 02/20/20 25 Active empagliflozin (Jardiance) 25 MGIndications:T ype 2 diabetes mellitus with other specified complication, unspecified whether lobsterman insulin use (HCC) Take 1 tablet (25 mg) by mouth Once per day. 30 tablet 11 02/20/20 25 026 Active Blood Glucose Monitoring Suppl (FreeStyle Noxen Lite) w/Device kitIndications: Type 2 diabetes mellitus with other specified complication, unspecified whether long-term insulin use (HCC) Use to test blood sugar twice daily as directed. 1 kit 02/27/20 25 Active cholecalciferol VITAMIN D (Vitamin D-3) 50 MCG (1999) tablet TAKE 1 TABLET BY MOUTH EVERY MORNING 90 tablet 1 03/06/20 25 Active lisinopril 30 MG tabletIndicatio ns:Essential hypertension TAKE 1 TABLET BY MOUTH EVERY MORNING 90 tablet 1 03/06/20 25 Active Multiple Vitamin (Multivitamin) tablet TAKE 1 TABLET BY MOUTH EVERY MORNING 90 tablet 1 03/06/20 25 Active divalproex (Depakote ER) 250 MG 24 hr tabletIndicatio ns:Bipolar affective disorder, remission status unspecified (CMS/HCC) (HCC) TAKE 1 TABLET BY MOUTH AT BEDTIME 90 tablet 1 03/06/20 25 Active prazosin (Minipress) 1 MG capsuleIndicati ons:Bipolar affective disorder, remission status unspecified (CMS/HCC) ([facility]) TAKE 1 CAPSULE BY MOUTH AT BEDTIME 90 capsule 1 04/29/20 25 Active venlafaxine XR (Effexor XR) 75 MG 24 hr capsuleIndicati ons:Mood disorder (CMS/HCC) TAKE 1 CAPSULE BY MOUTH EVERY MORNING WITH FOOD 30 capsule 3 04/30/20 25 Active rosuvastatin (Crestor) 40 MG tablet TAKE 1 TABLET BY MOUTH AT BEDTIME 30 tablet 11 06/04/20 25 Active metFORMIN XR (Glucophage-XR) 500 MG 24 hr tabletIndicatio ns:Type 2 diabetes mellitus with other specified complication, unspecified whether lobsterman insulin use (HCC) Take 2 tablets (1,000 mg) by mouth with evening meal. Do not crush, chew, or split. 180 tablet 3 06/20/20 25 026 Active Dulaglutide (Trulicity) 3 MG/0.5ML solution auto-injectorIn dications:Type 2 diabetes mellitus with other specified complication, unspecified whether lobsterman insulin use (HCC) Inject 3 mg under the skin 1 (one) time per week. 2 mL 06/20/20 25 Active Continuous Glucose Career Services Representative (FreeStyle Carly 3 [place]) deviceIndicatio ns:Type 2 diabetes mellitus with other specified complication, unspecified whether lobsterman insulin use (HCC) 1 each Once per day. Use as directed for CGM 1 each 06/20/20 Active Continuous Glucose Sensor (FreeStyle Carly 3 Plus Sensor) miscIndications :Type 2 diabetes mellitus with other specified complication, unspecified whether long-term insulin use (HCC) Apply 1 every 15 days as directed for CGM 2 each 06/20/20 Active glucose blood (FreeStyle Precision [place] Test) test stripIndication s:Type 2 diabetes mellitus with other specified complication, unspecified whether long-term insulin use (HCC) Use to test blood sugar 2 times daily in case of CGM failure or extremes of BG 50 each 06/20/20 Active acetaminophen (Tylenol 8 Hour) 650 MG ER tabletIndicatio ns:Rib pain on left side Take 1 tablet by mouth every 8 hours as needed 40 tablet 2 07/31/20 25 Active glipiZIDE (Glucotrol) 5 MG tabletIndicatio ns:Type 2 diabetes mellitus with other specified complication, unspecified whether lobsterman insulin use (HCC) Take 2 tablets (10 mg) by mouth with breakfast AND 1 tablet (5 mg) with evening meal. 90 tablet 5 08/01/20 Active mirtazapine (Remeron) 15 MG tablet TAKE 1 TABLET BY MOUTH AT BEDTIME 30 tablet 1 08/14/20 25 Active gabapentin (Neurontin) 100 MG capsule TAKE 1 CAPSULE BY MOUTH THREE TIMES DAILY IN THE MORNING, EVENING, AND BEDTIME 90 capsule 1 08/14/20 Active TRUEplus Lancets 33G miscIndications :Type 2 diabetes mellitus with other specified complication, unspecified whether lobsterman insulin use (HCC) USE DIRECTED TWICE DAILY 100 each 08/14/20 Active omeprazole (PriLOSEC) [address] capsule TAKE 1 CAPSULE BY MOUTH TWICE DAILY IN THE MORNING AND AT BEDTIME 180 capsule 3 08/14/20 Active mirtazapine (Remeron) 30 MG tablet Take 1 tablet (30 mg) by mouth at bedtime. Prn sleep 30 tablet 5 08/20/20 25 Active TRUEplus Lancets 33G miscIndications :Type 2 diabetes mellitus with other specified complication, unspecified whether lobsterman insulin use (HCC) Use to test BG twice daily (fasting & 2 hours post dinner) as directed 100 each 11 06/21/20 24 025 Discontinued acetaminophen (Tylenol 8 Hour) 650 MG ER tabletIndicatio ns:Chronic pain of both knees TAKE 1 TABLET BY MOUTH EVERY 8 HOURS NEEDED 40 tablet 2 07/31/20 24 025 Discontinued(Re order (will not trigger notification to Pharmacy)) glipiZIDE (Glucotrol) 5 MG tabletIndicatio ns:Type 2 diabetes mellitus with other specified complication, unspecified whether lobsterman insulin use (HCC) Take 2 tablets (10 mg) by mouth before breakfast and before evening meal. 120 tablet 5 02/20/20 25 025 Discontinued(Re order (will not trigger notification to Pharmacy)) gabapentin (Neurontin) 100 MG capsule TAKE 1 CAPSULE BY MOUTH THREE TIMES DAILY IN THE MORNING, EVENING, AND BEDTIME 90 capsule 3 04/01/20 25 025 Discontinued omeprazole (PriLOSEC) [address] capsule TAKE 1 CAPSULE BY MOUTH TWICE DAILY IN THE MORNING AND AT BEDTIME 180 capsule 1 04/02/20 25 025 Discontinued mirtazapine (Remeron) 15 MG tablet TAKE 1 TABLET BY MOUTH AT BEDTIME 30 tablet 1 06/04/20 25 025 Discontinued Active Problems Problem Noted Date Diagnosed Date Rib pain on left side 08/01/2025 Fall 08/01/2025 Ill-fitting dentures 11/07/2024 Healthcare maintenance 11/06/2024 Moderate atrophy of the maxilla 09/11/2024 Complete edentulism 05/07/2024 BMI 31.0-31.9,adult 12/28/2023 Vitamin D deficiency 12/28/2023 Severe episode of recurrent major depressive disorder, without psychotic features ([facility]) 10/25/2023 Assessment & Plan (11/12/2024 9:22 AM EST): During IBH Consult Magalis presenting with depressed mood, Tearful, crying spells , hopelessness, irritable mood, loss of interests/pleasure , sense of isolation/loneliness , isolating, changes in sleep difficulty falling asleep and difficulty staying asleep , psychomotor retardation, fatigue/loss of energy, worthlessness, inappropriate/excessive guilt , difficulty concentrating, indecisiveness; for a period of 18+ mo, for most or all symptoms in the context of family issues, financial concern, and illness or family illness. Magalis presented with concerns regarding her increase depressions. She was connected in the past with services but lost care. Reported need of therapy and psychiatry services. Family issues are main stressors for sxs. Pt has social support and attends day care program in [place] She also receives [employer] services. Her housing situation is stable, she feels safe. Explored coping mechanisms that pt can utilize to decrease sxs and have a more fulfilling life. clinician engaged patient with active/reflective listening. Reviewed and assessed for risk, current stressors and protective factors. Validated and empathized with patient's emotions. Number provided for [facility] centers. Pt completed intake with N at [facility]. clinician will provide additional support as needed. Assessment & Plan (05/23/2024 11:29 AM EDT): PROGRESS NOTE: ID: Magalis is a 64 y.o. Nepalese straight-identified cis-female with previous documented hx of Depression, Anxiety, and Non-compliance with or Medical tx services including OP Psychotherapy psychopharmacology who presents for Anxiety and Depression. During IBH Consult Magalis presenting with depressed mood, loss of interests/pleasure , changes in sleep difficulty falling asleep, difficulty staying asleep , restless, unsatisfying sleep, and even with medication, change in appetite or weight reduce appetite and struggling to follow diabetes diet, psychomotor agitation, trouble concentrating, fatigue/loss of energy and excessive worry/anxiety, difficulty controlling worry, restless/keyed up/On edge, easily fatigued, difficulty concentrating/Mind going blank , irritability, muscle tension, and sleep disturbance difficulty falling asleep, difficulty staying asleep , and restless, unsatisfying sleep; for a period of 18+ mo, for all symptoms in the context of financial instability, concern about son incarcerated, stress relationship with daughter, uncontrolled diabetes. PLAN: New/Additional Services needed PCP management Off-site services for Behavioral Health Integration Plan External OP BH therapy referral and OP psychiatry Referral Patient Self Plan Patient to utilize skills provided in intervention , Patient to reach out to [facility] team as needed, Comply with medication , Patient to engage in OP BH therapy , and Patient to reach out to [facility] as needed Assessment & Plan (10/26/2023 8:39 AM EST): PLAN: (check all that apply) New/Additional Services needed PCP management Off-site services for , Behavioral Health Integration Plan Internal Cold handoff internal psychiatric provider , External OP BH therapy referral During IBH Consult Magalis presenting with depressed mood, changes in sleep difficulty falling asleep and difficulty staying asleep , change in appetite or weight reduce appetite, overeating, and unintentional weight gain, trouble concentrating, thoughts of worthlessness or guilt, fatigue/loss of energy and excessive worry/anxiety, difficulty controlling worry, restless/keyed up/On edge, difficulty concentrating/Mind going blank , sleep disturbance difficulty falling asleep and difficulty staying asleep , and fearful ; for a period of 0-6 mo, for all symptoms in the context of family issues. Osteoarthritis of both knees 03/10/2023 Chronic pain of both knees 03/16/2018 Anxiety 02/23/2016 Chronic bipolar disorder ([facility]) 12/21/2015 Essential hypertension 12/21/2015 Chronic gastroesophageal reflux disease 12/21/19 16 Hyperlipidemia 12/21/2015 Insomnia 12/21/2015 Type 2 diabetes mellitus 12/21/2015 Resolved Problems Problem Noted Date Diagnosed Date Resolved Date Other meniscus derangements, other medial meniscus, right knee 10/10/2022 03/10/2023 Plantar fasciitis 10/10/2022 03/10/2023 Primary osteoarthritis of both knees 10/10/2022 03/10/2023 Primary osteoarthritis of right knee 10/10/2022 03/10/2023 Obesity 12/21/2015 03/10/2023 Encounters Date Type Department Care Team Description 08/20/2025 11:00 AM EDT Office Visit [facility] [address] [address] Beau Kumar MD Type 2 diabetes mellitus without complication, without long-term current use of insulin (HCC) (Primary Dx); Insomnia, unspecified type; Low glucose level; Acute intractable headache, unspecified headache type 08/20/2025 Travel 08/14/[address] [facility] [place] [address] Rosibel Walker DO Type 2 diabetes mellitus with other specified complication, unspecified whether lobsterman insulin use (HCC) 08/12/2025 Orders Only [address] [address] Rosibel Walker DO Type 2 diabetes mellitus with other specified complication, unspecified whether long-term insulin use (HCC) (Primary Dx) 08/11/[address] [address] Rosibel Walker DO Requesting update on Care of plan 08/07/[address] [address] Rosibel Walker DO Nurse Triage 08/01/[address] [address] Maribell Gan PharmD 08/01/[address] [address] Estela Rock, JUANY 08/01/2025 Travel 07/31/2025 2:00 PM EDT Office Visit [facility] [address] [place] [phone] Rocío Casanova FNP Fall, initial encounter (Primary Dx); Rib pain on left side; Essential hypertension 07/31/2025 Travel 07/28/2025 2:30 PM EDT Immunization [address] [address] Parrish Henao, JUANY Encounter for immunization 07/28/2025 Travel 07/25/[address] [address] Rosibel Walker DO Durable Medical Equipment (DME Requested: Shower Mat/Shower Chair/Hand Held Shower) 07/10/2025 10:00 AM EDT Clinical Support [facility] [address] [place] [address] Ree Andre, RN Type 2 diabetes mellitus without complication, without long-term current use of insulin ([facility]) 07/10/2025 Travel 07/01/[address] [address] Rosibel Walker DO Appointment Request 06/27/2025 Telephone [facility] [address] [place] [address] Ree Andre, JUANY faxed order 06/20/2025 Telephone [facility] [address] [place], [place] [phone] Maribell Gan PharmD Prior Authorization (Carly 3 CGM) 06/20/2025 Travel 06/01/2025 Refill [facility] [address] [place] [address] Rosibel Walker DO from Last 3 Months Immunizations Immunization Administration Dates Next Due Hep B, adult 06/05/2024(Deferred: No longer needed - immune per titers) Influenza injectable quadriv alent IIV4 with preservative 07/11/2018,08/09/2016,07/21/2015 Influenza injectable quadriv alent preservative free 08/07/2023,07/13/2022,09/07/2021,11/18,07/16/2019,08/03/2017 Influenza, High Dose Seasona l, Preservative Free 07/28/2025,07/12/2024 Influenza, Split (incl. niya fied surface antigen) 07/10/2013,09/17/2012 Moderna Covid-19 Vaccine 12+ 02/10/2021,01/14/20 Pfizer Covid-19 Vaccine 12+ 07/12/2024,,09/07/2021 Pfizer Covid-19 Vaccine 12+ Bivalent 08/02/2022 Pneumococcal Conjugate PCV 20 10/25/2023 Pneumococcal Polysaccharide PPSV23 03/20/2015 RSV Bivalent 09/13/2024 TD (adult), 2 Lf tetanus tox oid, preservative free, adsorbed 10/25/2023,04/08/2005 Tdap 09/17/2012 Zoster, Recombinant 08/03/2021,05/31/2021 Family History Medical History Relation Name Comments Depression Brother Diabetes Brother Glaucoma Brother Hypertension Brother Kidney disease Brother Coronary artery disease Maternal Grandfather Diabetes Mother Hypertension Mother Leukemia Mother Thyroid disease Mother Relation Name Status Comments Brother Maternal Grandfather Mother Social History Tobacco Use Types Packs/Day Years [...] Orientation Straight 08/22/2022 10 :17 AM EDT Last Filed Vital Signs Vital Sign Reading Time Taken Comments Blood Pressure 146/80 08/20/2025 11:03 AM EDT Pulse 92 08/20/2025 11:03 AM EDT Temperature 36.7 C (98 F) 08/20/2025 11:03 AM EDT Respiratory Rate 16 08/20/2025 11:03 AM EDT Oxygen Saturation 96% 08/20/2025 11:03 AM EDT Inhaled Oxygen Concentration - - Weight 68.5 kg (151 lb) 08/20/2025 11:03 AM EDT Height 147.3 cm (4' 10 ) 07/31/2025 1:24 PM EDT Body Mass Index 31.56 07/31/2025 1:24 PM EDT Plan of Treatment Upcoming Encounters Date Type Department Care Team (Late st Contact Info) Description 09/12/2025 11:30 AM EST Medication Management [facility] [address] [place] [address] Maribell Gan, PharmD [address] [place] [address] 10/10/2025 9:00 AM EST Office Visit [facility] [address] [place] [address] Adilene Spaulding, OD [address] [place] [address] Health Maintenance Due Date Last Done Comments CT Colonography 1959 Colonoscopy 1959 Colorectal Cancer Screening 1959 Dental Prophylaxis 1959 Dental X-Ray: Bitewings 1959 FIT DNA/Cologuard 1959 FIT 1959 FOBT 1959 Sigmoidoscopy 1959 Diabetes: Foot Exam 1969 Dental X-Ray: Full Mouth 04/17/2022 04/16/2019 Dental Oral Exam 11/03/2022 05/02/2022, , 04/16/2019 Diabetes: Urine Protein Screening 03/10/2024 03/10/2023, 11/18/2020 Lipid Panel 05/15/2025 05/15/2024, 02/20, 09/24/2021, Additional history exists COVID-19 Vaccine ( season) 2025 07/12/2024, 08/07/2023, 08/02/2022, Additional history exists Mammogram 09/15/2025 09/15/2023, 07/24, 07/17/2018 Diabetes: Hemoglobin A1C 09/20/2025 025, 03/28/2025, 02/19/2025, Additional history exists Depression Monitoring 09/27/2025 03/28/2025, 025 Alcohol/Substance Use Screening 11/06/2025 11/06/2024 SDOH Screening 03/21/2026 03/21/2025 Eye Exam 08/07/2026 08/07/2024, 07/23, 08/07/2024, Additional history exists Tobacco Screening 08/20/2026 08/20/2025 DTaP/Tdap/Td Vaccines (3 - Td or Tdap) 10/25/2033 10/25/2023, 09/17/2012, 04/08/2005 Cervical Cancer Screening Discontinued HPV/Cotest Discontinued 05/10/2019 Zoster Vaccines Completed 08/03/2021, 05/31/2021 Pneumococcal Vaccine: 50+ Years Completed 10/25/2023, 03/20/2015 Hepatitis C Screening Completed 05/15/2024, 021 RSV Patients and Patients Aged 60 years or older Completed 09/13/2024 Influenza Vaccine Completed 07/28/2025, , 08/07/2023, Additional history exists HIB Vaccines Aged Out No longer eligi ble based on patient's age to complete this topic HPV Vaccines Aged Out No longer eligi ble based on patient's age to complete this topic Hepatitis A Vaccines Aged Out No long er eligible based on patient's age to complete this topic Hepatitis B Vaccines Aged Out No long er eligible based on patient's age to complete this topic IPV Vaccines Aged Out No longer eligi ble based on patient's age to complete this topic Meningococcal B Vaccine Aged Out No l onger eligible based on patient's age to complete this topic Meningococcal Vaccine Aged Out No tulio tim eligible based on patient's age to complete this topic Pap Smear Discontinued RSV under 20 months Aged Out No longe r eligible based on patient's age to complete this topic Rotavirus Vaccines Aged Out No longer eligible based on patient's age to complete this topic Goals Goal Patient Goal Type Associated Problems Recent Progress Patient-Stated? Author Patient will adhere to medication regimen General No Maribell Gan, PharmAlex Hemoglobin A1c < 7 Result Component 7.1( 11:52 AM EDT) No Maribell Gan, PharmD Record your blood sugar as directed Result Component No Maribell Gan, PharmAlex Procedures Procedure Name Priority Date/Time Associated Diagnosis Comments POCT GLUCOSE Routine 08/20/2025 11:05 AM EDT Low glucose level XR RIBS 3 VIEWS LEFT W CHEST Routine 07/31/2025 2:49 PM EDT Fall, initial encounter POCT GLYCATED HEMOGLOBIN, TOTAL Routine 06/20/2025 11:52 AM EDT Type 2 diabetes mellitus with other specified complication, unspecified whether long-term insulin use (CMS/HCC) HEPATITIS C AB W/REFL TO HCV RNA, QN, PCR Routine 05/15/2024 8:05 AM EDT Healthcare maintenance LIPID PANEL, STANDARD Routine 05/15/2024 8:05 AM EDT Type 2 diabetes mellitus with other specified complication, unspecified whether long-term insulin use (CMS/HCC) BI MAMMOGRAM SCREENING TOMOSYNTHESIS BILATERAL Routine 09/15/2023 9:45 AM EST ALBUMIN, RANDOM URINE W/O CREATININE Routine 03/10/2023 10:30 AM EDT Type 2 diabetes mellitus without ophthalmic manifestations (CMS/HCC) PERIODIC ORAL EVALUATION - ESTABLISHED PATIENT Routine 05/02/2022 12:00 AM EDT ZZZ HISTORICAL HPV E6/E7 RFLX LOS 16 18/45 Routine 05/10/2019 11:26 AM EDT PANORAMIC RADIOGRAPHIC IMAGE Routine 04/16/2019 12:00 AM EDT from Last 3 Months or Most Recently Relevant to Health Maintenance Results * (ABNORMAL) POCT glucose manually resulted (08/20/2025 11:05 AM EDT) Glucose Blood, POC 220(A) 60 - 200 mg/dL Blood Capillary blood specimen / Unknown 08/20/2025 11:05 AM EDT Beau Kumar MD POINT OF CARE TEST ENTER/EDIT OR DERABLES Final Result * XR Ribs 3 Views Left w/ Chest (07/31/2025 2:49 PM EDT) Anatomical Region Laterality Modality Radiographic Jordyn ging 07/31/2025 2:4 9 PM EDT Narrative 07/31/2025 3:14 [place] [address] XRay Report Signed Patient: Magalis Brown MR#: [id number] : [id number] Acct:[id number] Age/Sex: 65 / F ADM Date: 07/31/25 Loc: [facility] Attending Dr: Rocío KNIGHT Ordering Physician: Rocío Casanova Date of Service: 07/31/25 Procedure(s): XR ribs LT min 3V w CXR1V Accession Number(s): [id number] cc: Rocío Casanova Reason for Exam: fall EXAMINATION: XR RIBS, LEFT CLINICAL INFORMATION: fall 1 week ago , left anterior axillary pain. COMPARISON: 04/16/2019. TECHNIQUE: PA chest, and 3 views of the left ribs were obtained. FINDINGS: Lungs are clear. No consolidation, pneumothorax, or pleural effusion. The cardiomediastinal silhouette and pulmonary vasculature are normal. Osseous structures are unremarkable. Ribs are intact. No acute fractures are identified. Old healed left ninth rib fracture noted. XR/XR ribs LT min 3V w CXR1V IMPRESSION: The lungs are clear. There are no acute findings in the thorax. The ribs appear intact. Electronically signed by: Rusty Pierce MD 07/31/2025 03:11 PM EDT RP Dictated By: Rusty Pierce MD Signed By: <Electronically signed by Rusty Pierce MD in OV> 07/31/25 1511 DD/ 1449 TD/TT: 07/31/25 1500 Athlete Marketing Agent: Procedure Note Donotuseinterpreter, Image - 07/31/2025 [facility] [address] [place] [address] XRay Report Signed Patient: Magalis BrownMR#: [id number] : 9Acct:[id number] Age/Sex: 65 / FADM Date: 07/31/25 [facility]: Rocío KNIGHT Ordering Physician: Rocío Casanova Date of Service: 07/31/25 Procedure(s): XR ribs LT min 3V w CXR1V Accession Number(s): [id number] cc: Rocío Casanova Reason for Exam: fall EXAMINATION: XR RIBS, LEFT CLINICAL INFORMATION: fall 1 week ago , left anterior axillary pain. COMPARISON: 04/16/2019. TECHNIQUE: PA chest, and 3 views of the left ribs were obtained. FINDINGS: Lungs are clear. No consolidation, pneumothorax, or pleural effusion. The cardiomediastinal silhouette and pulmonary vasculature are normal. Osseous structures are unremarkable. Ribs are intact. No acute fractures are identified. Old healed left ninth rib fracture noted. XR/XR ribs LT min 3V w CXR1V IMPRESSION: The lungs are clear. There are no acute findings in the thorax. The ribs appear intact. Electronically signed by: Rusty Pierce MD 07/31/2025 03:11 PM EDT RP Dictated By: Rusty Pierce MD Signed By: <Electronically signed by Rusty Pierce MD in OV> 07/31/25 1511 DD/ 1449 TD/TT: 07/31/25 1500 Athlete Marketing Agent: Rocío Casanova DIRECTOR OF RETAIL ANALYTICS IMG XR PROCEDURES Final Result * (ABNORMAL) POCT HGB A1C (06/20/2025 11:52 AM EDT) [facility] Hemoglobin A1C 7.1(A) 4.0 - 5.7 % Blood 06/20/2025 11:5 2 AM EDT Rosibel Walker DO POINT OF CARE TEST ENTER/MARY T ORDERABLES Final Result * Hepatitis C Antibody with Reflex to HCV, RNA, Quantitative, Real-Time PCR (05/15/2024 8:05 AM EDT) [facility] Hepatitis C Antibody Nonreactive Nonreactive [facility] Comment:Antibodies to HCV no t detected; does not exclude early acuteHCV infection. Blood Venous blood specimen / Unknown 05/15/2024 8:05 AM EDT 05/15/2024 12:12 PM EDT Rosibel Walker DO LAB BLOOD ORDERABLES Final R esult [facility] [address] [place] [address] [phone] * (ABNORMAL) Lipid Panel, Standard (05/15/2024 8:05 AM EDT) [facility] Triglycerides 188(H) <150 mg/dL [facility] Comment:Desirable Triglyceri de: less than 150 mg/dLBorderline High Triglyceride 150-199 mg/dLHigh Triglyceride: 200-499 mg/dLVery High Triglyceride: greater than or equal to 5OO mg/dL Cholesterol 183 <200 mg/dL [facility] Comment:Desirable Cholestero l: less than 200 mg/dLBorderline High Cholesterol: 200-239 mg/dLHigh Cholesterol: greater than 239 mg/dL LDL Cholesterol Calculated 98 <100 mg/dL [facility] Comment:Desirable LDL: less than 100 mg/dLNear Optimal/Above Optimal LDL: 110- 129 mg/dLBorderline High LDL: 130-159 mg/dLHigh LDL: 160-189 mg/dLVery High LDL: greater than or equal to 190 mg/dL HDL Cholesterol 48 >40 mg/dL [facility] Comment:Desirable HDL: great er than 40 mg/dL Note: This HDL assay may give artificially low results in patients with liver disease. Blood Venous blood specimen / Unknown 05/15/2024 8:05 AM EDT 05/15/2024 12:12 PM EDT us Rosibel Walker DO LAB BLOOD ORDERABLES Final R esult [facility] [address] [place] [phone] * BI Mammogram Screening Tomosynthesis Bilateral (09/15/2023 9:45 AM EST) Anatomical Region Laterality Modality Breast Bilateral Mammography 09/15/2023 9:45 AM EST Narrative 09/15/2023 11:24 AM EST [address] [place] [address] Mammography Report Signed Patient: Magalis Brown MR#: [id number] : 1960 Acct:[id number] Age/Sex: 63 / F ADM Date: 09/15/23 Loc: HO.MAMMO Attending Dr: Rosibel Walker DO Ordering Physician: Rosibel Walker DO Results: 1N egative Date of Service: 09/15/23 Follow Up: 1 Year From Orig ina Mammogram Procedure(s): MM tomosynthesis screening BI Accession Number(s): [id number] cc: Rosibel Walker DO EXAMINATION: MM SCREENING DIGITAL BREAST TOMOSYNTHESIS, BILATERAL CLINICAL INFORMATION: Screening. Asymptomatic. COMPARISON: Mammography: This study is compared with prior exams dating back to 15 a TECHNIQUE: Digital breast tomosynthesis is performed in both the craniocaudal and mediolateral oblique views along with computer-aided detection (CAD). Synthesized 2D images are generated from the tomosynthesis. FINDINGS: The breasts are almost entirely fatty (ACR BI-RADS breast composition Category a). There are no significant masses, abnormal calcifications, or other abnormalities. MM/MM tomosynthesis screening BI IMPRESSION: No mammographic evidence of malignancy. ASSESSMENT: BI-RADS BI-RADS 1 - Negative RECOMMENDATION: Routine annual mammography screening. 1 year F/U This examination should not preclude the clinical evaluation of a suspicious palpable abnormality. This patient's information was entered into a reminder system with a target due date for their next mammogram. Dictated By: Gila Schofield MD Signed By: <Electronically signed by Gila Schofield MD in OV> 09/15/23 1120 DD/ 0945 TD/TT: Athlete Marketing Agent: Procedure Note Donotuseinterpreter, Image - 09/15/2023 [facility] [address] [place] [address] Mammography Report Signed Patient: Magalis BrownMR#: [id number] : 9Acct:[id number] Age/Sex: 63 / FADM Date: 09/15/23 Loc: HO.MAMMO Attending Dr: Rosibel Walker DO Ordering Physician: Rosibel Walkerults: 1N egative Date of Service: 09/15/23Follow Up: 1 Year From Orig ina Mammogram Procedure(s): MM tomosynthesis screening BI Accession Number(s): [id number] cc: Rosibel Walker DO EXAMINATION: MM SCREENING DIGITAL BREAST TOMOSYNTHESIS, BILATERAL CLINICAL INFORMATION: Screening. Asymptomatic. COMPARISON: Mammography: This study is compared with prior exams dating back to 15 a TECHNIQUE: Digital breast tomosynthesis is performed in both the craniocaudal and mediolateral oblique views along with computer-aided detection (CAD). Synthesized 2D images are generated from the tomosynthesis. FINDINGS: The breasts are almost entirely fatty (ACR BI-RADS breast composition Category a). There are no significant masses, abnormal calcifications, or other abnormalities. MM/MM tomosynthesis screening BI IMPRESSION: No mammographic evidence of malignancy. ASSESSMENT: BI-RADS BI-RADS 1 - Negative RECOMMENDATION: Routine annual mammography screening. 1 year F/U This examination should not preclude the clinical evaluation of a suspicious palpable abnormality. This patient's information was entered into a reminder system with a target due date for their next mammogram. Dictated By: Gila Schofield MD Signed By: <Electronically signed by Gila Schofield MD in OV> 09/15/23 1120 DD/ 0945 TD/TT: Athlete Marketing Agent: Rosibel Walker DO IMG BI PROCEDURES Final Resu lt * Albumin, Random Urine W/O Creatinine (03/10/2023 10:30 AM EDT) Albumin, Urine 0.2 See Note: mg/dL [facility] [place] [facility] Comment: Reference Range: Reference Range Not established [facility] [place] [facility] Comment: The ADA defines abnormalities in albumin excretion as follows: Albuminuria Category Result (mcg/mg creatinine) Normal to Mildly increased <30 Moderately increased 30-299 Severely increased > OR = 300 The ADA recommends that at least two of three specimens collected within a 3-6 month period be abnormal before considering a patient to be within a diagnostic category. Urine Urine specimen obtained by clean catch procedure / Unknown 03/10/2023 10:30 AM EDT 03/10/2023 10:30 AM EDT Narrative [facility] - 03/12/2023 10:02 AM EDT FASTING:UNKNOWN FASTING: UNKNOWN Rosibel Walker DO LAB URINE ORDERABLES Final R esult [facility] [address], [place] [address] [facility] [place] [facility] [address] [place] [address] * HPV E6/E7 RFLX LOS 16 18/45 (05/10/2019 11:26 AM EDT) HPV 16 RNA Test not performed [facility] HPV 18/45 RNA Test not performed [facility] HPV mRNA E6/E7 Not Detected NOT DETECTED [facility] Comment: This test was performed using the APTIMA(R) HPV Assay ([employer] This assay detects E6/E7 viral messenger RNA (mRNA) from 14 high-risk HPV types (16,18,31,33,35,39,45,51, 52,56,58,59,66,68). For additional information please refer to: http://education.NJOY/faq/LNI256j6 (This link is being provided for informational/ educational purposes only.) The analytical performance characteristics of this assay have been determined by [facility] [place] [place]. The modifications have not been cleared or approved by the FDA. This assay has been validated pursuant to the CLIA regulations and is used for clinical purposes. Please note: Effective 07/04/2016, HPV testing will be performed using [employer]'s APTIMA test which targets mRNA. Detecting mRNA instead of DNA, as in older methods, offers significant improvements in specificity. ADDITIONAL TESTING Not indicated () [facility] Comment: Test Performed by Lino Llanos, [facility], [address] [place] [address] Max Aquino M.D., Ph.D., Director of Laboratories , [place] [id number] 05/10/2019 11:2 6 AM EDT Rosibel Walker DO HISTORICAL/NON ORDERABLE LAB S Final Result [facility] [address] from Last 3 Months or Most Recently Relevant to Health Maintenance Insurance [facility] OPTIONS (O D-SNP) DENTAL - [facility] [address] [place] [id number] Care Teams Medical Billing And Coding Instructor Relationship Specialty Start Date End Date Rosibel Walker DO [address] [place] [address] PCP - General Family Medicine 07/07/15 Maribell Gan PharmD [address] [place] [address] Pharmacist Internal Medicine 06/05/24 [facility] 06/18/24
--- OUTSIDE RECORDS SUMMARY | 2025-08-22 11:35 | XMS_ITS | Encounter Summary ---
Author Organization [employer] Address [address] [facility] 7t [place] [address] Care Team Providers Care Party Plan Dealer Name Role Phone Rosibel Walker DO Primary Care Provider Maribell Gan PharmD Unavailable [phone] Reason for Visit * Reason Onset Date Comments no show rs appt 10/10/2024 Encounter Details Date Type Department Care Team ([facility] st Contact Info) Description 10/10/2024 Telephone [facility] DENTAL [address] [place] [address] Kin Woodruff DDS [address] [place] [address] no show rs appt Social History Tobacco Use Types Packs/Day Years Used Date Smoking Tobacco: Never Passive Smoke Exposure: Never Smokeless Tobacco: Never Alcohol Use Standard Drinks/Week Comments Defer 0 (1 standard drink = 0.6 oz pur e alcohol) Depression Answer Date Recorded Patient Health Questionnaire-9 Score 05/23/2024 Patient Health Questionnaire-9 Score 19 05/23/2024 Last PHQ-9: Questionnaire Data Not on file 0 05/23/2024 Housing Stability Answer Date Recorded What is [...] Date Recorded Patient Health Questionnaire-2 Score 6 05/23/2024 Internet Access Answer Date Recorded Internet Access Q1 Yes 06/21/2024 Internet Access Q2 Not on file 06/21/2024 Comments Unknown Sex and Gender Information Value Date Recorded Sex Assigned at Female 08/22/2022 10:17 AM EDT Legal Sex Female 10:17 AM EDT Gender Identity Female 08/22/2022 10:17 AM EDT Sexual Orientation Straight 08/22/2022 10 :17 AM EDT documented as of this encounter Miscellaneous Notes * Telephone Encounter - Annie Freitas - 10/10/2024 3:04 PM EST Patient called in to reschedule a no show appt. Patient informed that office will reach out to reschedule after a waiting period. Patient understood DR documented in this encounter Plan of Treatment Upcoming Encounters Date Type Department Care Team (Late st Contact Info) Description 09/12/2025 11:30 AM EST Medication Management [facility] MEDICINE [address] [place] [address] Maribell Gan PharmD [address] [place] [address] 10/10/2025 9:00 AM EST Office Visit [facility] OPTOMETRY [address] [place] [address] Adilene Spaulding, OD 230 [place] [address] documented as of this encounter Goals Goal Patient Goal Type Associated Problems Recent Progress Patient-Stated? Author Patient will adhere to medication regimen General No Maribell Gan PharmD Hemoglobin A1c < 7 Result Component 7.1(08/29/202 5 11:52 AM EDT) No Maribell Gan, PharmD Record your blood sugar as directed Result Component No Maribell Gan, PharmD documented as of this encounter Visit Diagnoses Not on filedocumented in this encounter Additional Health Concerns Assessment Noted Time PHQ-9 Depression Total Score: 19 024 11:12 AM EDT documented as of this encounter Care Teams Party Plan Dealer Relationship Specialty Start Date End Date Rosibel Walker DO [address] [place] [address] PCP - General Family Medicine 07/07/15 Maribell Gan, PharmD [address] [place] [address] Pharmacist Internal Medicine 06/05/24 [facility] 06/18/24 documented as of this encounter
--- OUTSIDE RECORDS SUMMARY | 2025-08-22 11:35 | XMS_ITS | Encounter Summary ---
Author Organization [employer] Address [address] [facility] 7t [place] [address] Care Team Providers Care Track Welder Name Role Phone Rosibel Walker DO Primary Care Provider Maribell Gan PharmD Unavailable [phone] Reason for Visit * Reason Comments Med Refill Encounter Details Date Type Department Care Team ([facility] st Contact Info) Description 10/15/2023 Refill [facility] MED[facility]INE [address] [place] [address] Rosibel Walker DO 230 [place] [address] Type 2 diabetes mellitus with other specified complication, unspecified whether jail insulin use ([facility]) Social History Tobacco Use Types Packs/Day Years Used Date Smoking Tobacco: Never Passive Smoke Exposure: Never Smokeless Tobacco: Never Housing Stability Answer Date Recorded What is your housing situation today? I have lucas holland 08/07/[address] you li ve. Do you have problems with any of the following? None of the above 08/07/2023 Food Insecurity Answer Date Recorded Within the past 12 months, y ou worried that your food would run out before you got money to buy more: Never True 08/07/2023 Within the past 12 months,th e food you bought just didn't last and you didn't have enough money to get more: Never True Transportation Answer Date Recorded In the past 12 months, has l ack of transportation kept you from medical appts, meetings, work or from getting things needed for daily living? No 08/07/2023 Utilities Answer Date Recorded In the past 12 months, has t he electric, gas, oil or water company threatened to shut off services in your home? No 08/07/2023 Comments Unknown Sex and Gender Information Value [...] Description 09/12/2025 11:30 AM EST Medication Management [facility] [address] [place] [address] Maribell Gan PharmD [address] [place] [address] 10/10/2025 9:00 AM EST Office Visit [facility] OPTOMETRY [address] [place] [address] Jasson, Adilene, OD [address] [place] [address] documented as of this encounter Visit Diagnoses Diagnosis Type 2 diabetes mellitus with other specified complication, unspecified whether jail insulin use (HCC) documented in this encounter Care Teams Track Welder Relationship Specialty Start Date End Date Rosibel Walker DO [address] [place] [address] PCP - General Family Medicine 07/07/15 Maribell Gan PharmD [address] [place] [address] Pharmacist Internal Medicine 06/05/24 [facility] 06/18/24 documented as of this encounter
--- OUTSIDE RECORDS SUMMARY | 2025-08-22 11:35 | XMS_ITS | Encounter Summary ---
Author Organization [employer] Address [address] [facility] 7t [place] [address] Care Team Providers Care Outpatient Surgery Rn Name Role Phone Rosibel Walker DO Primary Care Provider Maribell Gan PharmD Unavailable [phone] Encounter Details Date Type Department Care Team (Latest Contact Info) Description 08/20/2025 Travel Social History Tobacco Use Types Packs/Day Years [...] Medication Management [facility] MED[facility]INE [address] [place] [address] Puia, Maribell, PharmD [address] [place] [address] 10/10/2025 9:00 AM EST Office Visit [facility] OPTOMETRY [address] [place] [address] Jasson, Adilene, OD [address] [place] [address] documented as of this encounter Goals Goal [...] documented as of this encounter Care Teams Outpatient Surgery Rn Relationship Specialty Start Date End Date Rosibel Walker DO [address] [place] [address] PCP - General Family Medicine 07/07/15 Puia, Maribell, PharmD [address] [place] [address] Pharmacist Internal Medicine 06/05/24 [facility] 06/18/24 documented as of this encounter
--- OUTSIDE RECORDS SUMMARY | 2025-08-22 11:35 | XMS_ITS | Encounter Summary ---
Author Organization [employer] [facility] Address [address] [place] [address] 7t [place] [address] Care Team Providers Care Chefs Name Role Phone Rosibel Walker DO Primary Care Provider PuMaribell knight PharmD Unavailable [phone] Reason for Visit * Reason Comments Med Refill Encounter Details Date Type Department Care Team ([facility] Contact Info) Description 04/26/2023 Refill [facility] [address] [place] [address] Chandana Belle FNP Mood disorder (CMS/[facility]) Social History Tobacco Use Types Packs/Day [...] Upcoming Encounters Date Type Department Care Team ([facility] Contact Info) Description 09/12/2025 11:30 AM EST Medication Management [facility] [address] [place] [address] PuiaAbdiMaribell, PharmD [address] [place] [address] 10/10/2025 9:00 AM EST Office Visit [facility] OPTOMETRY [address] [place] [address] Adilene Spaulding, OD [address] [place] [address] documented as of this encounter Visit Diagnoses Diagnosis Mood disorder (CMS/HCC) Unspecified episodic mood disorder documented in this encounter Care Teams Chefs Relationship Specialty Start Date End Date Rosibel Walker DO [address] [place], [place] [phone] PCP - General Family Medicine 07/07/15 Maribell Gan PharmD [address] [place], [place] [phone] Pharmacist Internal Medicine 06/05/24 [facility] 06/18/24 documented as of this encounter
--- OUTSIDE RECORDS SUMMARY | 2025-08-22 11:35 | XMS_ITS | Encounter Summary ---
Author Organization [employer] [facility] Address [address] [place] [address] 7t [place] [address] Care Team Providers Care Periodicals Library Assistant Name Role Phone Rosibel Walker DO Primary Care Provider PuiaHannahsa PharmD Unavailable [phone] Reason for Visit * Reason Comments Med Refill Encounter Details Date Type Department Care Team (Late Contact Info) Description 04/26/2023 Refill [facility] MEDICINE [address] [place] [address] Rosibel Walker DO [address] [place] [address] Bipolar affective disorder, remission status unspecified ([facility]) Social History Tobacco Use Types Packs/Day Years [...] Encounters Date Type Department Care Team (Late Contact Info) Description 09/12/2025 11:30 AM EST Medication Management [facility] MEDICINE [address] [place] [address] Puia, Maribell, PharmD [address] [place] [address] 10/10/2025 9:00 AM EST Office Visit [facility] OPTOMETRY [address] [place], [place] [phone] Adilene Spaulding, SHERWIN [address] [place] [address] documented as of this encounter Visit Diagnoses Diagnosis Bipolar affective disorder, remission status unspecified (CMS/HCC) (HCC) documented in this encounter Care Teams Periodicals Library Assistant Relationship Specialty Start Date End Date Rosibel Walker DO [address] [place], [place] [phone] PCP - General Family Medicine 07/07/15 Maribell Gan PharmD [address] [place], [place] [phone] Pharmacist Internal Medicine 06/05/24 [facility] 06/18/24 documented as of this encounter
--- OUTSIDE RECORDS SUMMARY | 2025-08-22 11:35 | XMS_ITS | Encounter Summary ---
Author Organization [employer] Address [address] [facility] 7t [place] [address] Care Team Providers Care Mapping Analyst Name Role Phone Rosibel Walker DO Primary Care Provider Maribell Gan PharmD Unavailable [phone] Reason for Visit * Reason Onset Date Comments Durable Medical Equipment 07/25/2025 DME Re quested: Shower Mat/Shower Chair/Hand Held Shower Encounter Details Date Type Department Care Team ([facility] st Contact Info) Description 07/25/2025 Telephone [facility] MEDIC[facility] [address] [place] [address] Rosibel Walker DO [address] [place] [address] Durable Medical Equipment (DME Requested: Shower Mat/Shower Chair/Hand Held Shower) Social History Tobacco Use Types Packs/Day Years [...] encounter Miscellaneous Notes * Telephone Encounter - Brionna Wood - 08/20/2025 1:26 PM EDT DME orders for the listed items were generated and sent to Brittany via FAX with supporting documentation. Confirmation was uploaded to Media. * Telephone Encounter - Ana Weems MA - 07/30/2025 3:38 PM EDT Gus called regarding a Physician Summary Form. She stated that the patient had a PE done on 03/28/25.I informed her that the form and PE notes, will be faxed back to [facility], after it is reviewed and signed by the provider. She informed me that the patient is scheduled for a bone density test on 09/25/25, and for a mammogram on 08/22/25. * Telephone Encounter - Mathew Wiley - 07/25/2025 3:23 PM EDT Tc from Gus T with care requesting a script for a placement jennifer shower chair and a shower hose. Any questions contact gus Griffin at [phone] documented in this encounter Plan of Treatment Upcoming Encounters Date Type Department Care Team (Late st Contact Info) Description 09/12/2025 11:30 AM EST Medication Management [facility] MEDIC[facility] [address] [place] [address] PuMaribell knight, PharmD [address] [place] [address] 10/10/2025 9:00 AM EST Office Visit [facility] OPTOMETRY [address] [place] [address] Jasson, Adilene, OD [address] [place] [address] documented as of this encounter Goals Goal Patient Goal Type Associated Problems Recent Progress Patient-Stated? Author Patient will adhere to medication regimen General No Puia, Maribell, PharmD Hemoglobin A1c < 7 Result Component 7.1( 11:52 AM EDT) No Puia, Maribell, PharmD Record your blood sugar as directed Result Component No Puia Maribell, PharmD documented as of this encounter Visit Diagnoses Not on filedocumented in this encounter Additional Health Concerns Assessment Noted Time PHQ-9 Depression Total Score: 16 025 2:27 PM EDT documented as of this encounter Care Teams Mapping Analyst Relationship Specialty Start Date End Date Rosibel Walker DO [address] [place] [address] PCP - General Family Medicine 07/07/15 Puia, Maribell, PharmD [address] [place] [address] Pharmacist Internal Medicine 06/05/24 [facility] 06/18/24 documented as of this encounter
--- OUTSIDE RECORDS SUMMARY | 2025-08-22 11:35 | XMS_ITS | Encounter Summary ---
Author Organization [employer] Address 75 [facility] 7t [place] [address] Care Team Providers Care Pit Crane Operator Name Role Phone Rosibel Walker DO Primary Care Provider Maribell Gan PharmD Unavailable [phone] Reason for Visit * Reason Comments Med Refill Encounter Details Date Type Department Care Team ([facility] st Contact Info) Description 09/23/2024 Refill [facility] MEDICINE [address] [place] [address] Rosibel Walker DO [address] [place] [address] Bipolar affective disorder, remission status unspecified ([facility]); Essential hypertension; Seasonal allergic rhinitis, unspecified trigger Social History Tobacco Use Types Packs/Day Years Used Date Smoking Tobacco: Never Passive Smoke Exposure: Never Smokeless Tobacco: Never Alcohol Use Standard Drinks/Week Comments Defer 0 (1 standard drink = 0.6 oz pur e alcohol) Depression Answer Date Recorded Patient Health Questionnaire-9 Score 19 05/23/2024 Patient Health Questionnaire-9 Score 19 05/23/2024 [...] Description 09/12/2025 11:30 AM EST Medication Management [facility] MEDICINE [address] [place] [address] Puia, Maribell, PharmD [address] [place] [address] 10/10/2025 9:00 AM EST Office Visit [facility] OPTOMETRY [address] [place] [address] Jasson, Adilene, OD [address] [place] [address] documented as of this encounter Goals Goal [...] affective disorder, remission status unspecified (CMS/HCC) (HCC) Essential hypertension Unspecified essential hypertension Seasonal allergic rhinitis, unspecified trigger documented in this encounter Additional Health Concerns Assessment Noted Time PHQ-9 Depression Total Score: 19 08/01/2 024 11:12 AM EDT documented as of this encounter Care Teams Pit Crane Operator Relationship Specialty Start Date End Date Rosibel Walker DO [address] [place] [address] PCP - General Family Medicine 07/07/15 Maribell Gan PharmD [address] [place] [address] Pharmacist Internal Medicine 06/05/24 [facility] 06/18/24 documented as of this encounter
--- OUTSIDE RECORDS SUMMARY | 2025-08-22 11:35 | XMS_ITS | Encounter Summary ---
Author Organization [employer] Address [address] [place] [address] Care Team Providers Care Superintendent Of Generation Name Role Phone Rosibel Walker DO Primary Care Provider [phone] Maribell Gan PharmD Unavailable [phone] Reason for Visit * Reason Comments Med Refill Encounter Details Date Type Department Care Team (Late st Contact Info) Description 07/22/2024 Refill [facility] MED & PEDS [address] [place], [place] [phone] Rosibel Walker DO [address] [facility] [place], [place] [phone] Social History Tobacco Use Types Packs/Day Years [...] Description 09/12/2025 11:30 AM EST Medication Management [facility] MEDICINE [address] [place] [address] Puia, Maribell, PharmD [address] [place] [address] 10/10/2025 9:00 AM EST Office Visit [facility] OPTOMETRY [address] [place] [address] Jasson, Adilene, OD [address] [place] [address] documented as of this encounter Goals Goal [...] documented as of this encounter Care Teams Superintendent Of Generation Relationship Specialty Start Date End Date Rosibel Walker DO [address] [place] [address] PCP - General Family Medicine 07/07/15 Maribell Gan PharmD [address] [place] [address] Pharmacist Internal Medicine 06/05/24 [facility] 06/18/24 documented as of this encounter
--- OUTSIDE RECORDS SUMMARY | 2025-08-22 11:35 | XMS_ITS | Encounter Summary ---
Author Organization [employer] [facility] Address [address] [place] [address] 7t [place] [address] Care Team Providers Care Aquarium Tank Attendant Name Role Phone Rosibel Walker DO Primary Care Provider PuMaribell knight PharmD Unavailable Reason for Visit * Reason Comments Med Refill Encounter Details Date Type Department Care Team ([facility] Contact Info) Description 05/04/2023 Refill [facility] MEDICINE [address] [place] [address] Chandana Belle FNP Mood disorder (CMS/[facility]) Social History Tobacco Use Types Packs/Day Years [...] Upcoming Encounters Date Type Department Care Team ([facility] Contact Info) Description 09/12/2025 11:30 AM EST Medication Management [facility] MEDICINE [address] [place] [address] PuiaAbdiMaribell, PharmD [address] [place] [address] 10/10/2025 9:00 AM EST Office Visit [facility] OPTOMETRY [address] [place] [address] Adilene Spaulding, OD [address] [place] [address] documented as of this encounter Visit Diagnoses Diagnosis Mood disorder (CMS/HCC) Unspecified episodic mood disorder documented in this encounter Care Teams Aquarium Tank Attendant Relationship Specialty Start Date End Date Rosibel Walker DO [address] [place], [place] [phone] PCP - General Family Medicine 07/07/15 Maribell Gan PharmD [address] [place], [place] [phone] Pharmacist Internal Medicine 06/05/24 [facility] 06/18/24 documented as of this encounter
--- OUTSIDE RECORDS SUMMARY | 2025-08-22 11:35 | XMS_ITS | Encounter Summary ---
Author Organization [employer] Address [address] [place] [address] Care Team Providers Care Forestry Support Specialist Name Role Phone Rosibel Walker DO Primary Care Provider Maribell Gan PharmD Unavailable [phone] Reason for Visit * Reason Comments Med Refill Encounter Details Date Type Department Care Team ([facility] st Contact Info) Description 08/27/2024 Refill [facility] MEDICINE [address] [place] [address] Rosibel Walker DO [address] [place] [address] Social History Tobacco Use Types Packs/Day Years [...] Description 09/12/2025 11:30 AM EST Medication Management [facility] MEDICINE [address] [place] [address] Puia, Maribell, PharmD [address] [place] [address] 10/10/2025 9:00 AM EST Office Visit [facility] OPTOMETRY [address] [place] [address] Jasson, Adilene, OD [address] [place] [address] documented as of this encounter Goals Goal [...] documented as of this encounter Care Teams Forestry Support Specialist Relationship Specialty Start Date End Date Rosibel Walker DO [address] [place] [address] PCP - General Family Medicine 07/07/15 Maribell Gan PharmD [address] [place] [address] Pharmacist Internal Medicine 06/05/24 [facility] 06/18/24 documented as of this encounter
== END 2025-08-22 10:16 | disposition home or self-care (01) ==
LOC: HO.MAMMO 10:15
PROVIDERS: Visit Provider Family Medicine
DX: Z12.31 Encounter for screening mammogram for malignant neoplasm of breast (principal)
CPT/HCPCS: 77063; 77067

== ENCOUNTER → 2025-08-22 10:15 | Outpatient (BNV) | payer OTHER, SELFPAY | PROVIDERS: Visit Provider Radiology Body Imaging | DX: Z12.31 Encounter for screening mammogram for malignant neoplasm of breast (principal) | CPT/HCPCS: 77063; 77067 ==

== ENCOUNTER 2025-09-25 11:12 | Outpatient (REF) | payer OTHER, SELFPAY ==
--- NOTE | ~2025-09-25 | MM_ITS ---
EXAMINATION: DXA BONE DENSITY AXIAL HISTORY: routine screening for women age 65 and older TECHNIQUE: [employer] Dual energy absorptiometry (DEXA) of the lumbar spine, total left hip, and femoral neck was performed. COMPARISON: None FINDINGS: The bone mineral density of the lumbar spine is 0.863 g/cm2, corresponding to a T-score of -2.6, and a Z-score of -1.1. This is indicative of osteoporosis. The bone mineral density of the left total hip is 0.758 g/cm2, corresponding to a T-score of -2.0, and a Z-score of -0.8. This is indicative of osteopenia. The bone mineral density of the left femoral neck is 0.6-1 g/cm2, corresponding to a T-score of -3.0, and a Z-score of -1.5. This is indicative of osteoporosis. FRACTURE RISK: The FRAX index suggests a ten year probability of major osteoporotic fracture of 9.6%, and of hip fracture 2.8%. MM/XR DEXA axial skeleton IMPRESSION: Based on bone mineral density, and according to World Health Organization (WHO) criteria, the diagnosis is consistent with osteoporosis based on lowest T score of -3.0 in the left femoral neck. Treatment Recommendations: NOF guidelines recommend consideration for treatment in postmenopausal women and men age 50 and older presenting with the following: -A hip or vertebral (clinical or morphometric) fracture. -T-score less than or equal to -2.5 at the femoral neck or spine after appropriate evaluation to exclude secondary causes. -Low bone mass at the hip or spine and a 10-year fracture probability by FRAX of greater than or equal to 3% for hip fracture or greater than or equal to 20% for major osteoporotic fracture based on the [place] adapted WHO algorithm. Other Recommendations: All treatment decisions require clinical judgment and consideration of individual patient factors, including patient preferences, comorbidities, previous drug use, risk factors not captured in the FRAX model (e.g. frailty, falls, vitamin D deficiency, increased bone turnover, interval significant decline in bone density) and possible under or overestimation of fracture risk by FRAX. Additional medical evaluation for secondary cause of low bone mineral density may be appropriate. FUTURE SCAN RECOMMENDATION: People with diagnosed cases of osteoporosis or at high risk for fracture should have regular bone mineral density tests. For patients eligible for Medicare, routine testing is allowed once every 2 years. The testing frequency can be increased to one year for patients who have rapidly progressing disease, those who are receiving or discontinuing medical therapy to restore bone mass, or have additional risk factors. Statistically, 68% of repeat scans fall within 1 SD (+/- 0.010 g/cm2 for AP spine L1-L4) and 1 SD (+/- 0.012 g/cm2 for femur total) FRAX is a trademark of the [employer] Met[employer], a World Health Organization (WHO) Collaborating Center. Electronically signed by: Audrey Farias MD 09/25/2025 02:51 PM [facility]
== END 2025-09-25 11:13 | disposition home or self-care (01) ==
LOC: HO.MAMMO 11:12
PROVIDERS: PCP Family Medicine
DX: Z00.00 Encounter for general adult medical examination without abnormal findings (principal); Z78.0 Asymptomatic menopausal state
CPT/HCPCS: 77080

== ENCOUNTER → 2025-09-25 11:30 | Outpatient (BNV) | payer OTHER, SELFPAY | PROVIDERS: PCP Family Medicine; Visit Provider Radiology Diagnostic Radiology | DX: E28.39 Other primary ovarian failure (principal) | CPT/HCPCS: 77080 ==

== ENCOUNTER 2025-09-26 09:55 | Outpatient (REF) | payer OTHER, SELFPAY ==
[2025-09-26 11:41] LABS: Hematocrit 40.7 % (37.0-47.0); Hemoglobin 12.7 g/dl (12.0-16.0); Mean Corpuscular HGB Conc 31.2 g/dl (31.0-35.0); Mean Corpuscular Hemoglobin 27.3 pg (27.0-33.0); Mean Corpuscular Volume 87.5 fL (80.0-98.0); NRBC Abs Auto 0.000 X10*3/uL (0.0-0.012); NRBC Pct Auto 0.0 /100WBC (0.0-0.2); Platelet Count 390 X10*3/uL (160-400); Red Blood Count 4.65 X10*6/uL (4.20-5.50); White Blood Count 7.7 X10*3/uL (4.8-10.8)
[2025-09-26 12:12] LABS: HBS Num1 12.24 mIU/mL (0-7.99); HBsAGNum1 0.30 S/CO (0.00-0.99); HIV Num 1 0.06 S/CO (0.00-0.99); Hepatitis B Surface Antigen Negative (Negative); ~HepC Num1 0.18 S/CO (0.00-0.79); ~Hepatitis B Surface Antibody REACTIVE (Nonreactive); ~Hepatitis C Antibody Nonreactive (Nonreactive)
[2025-09-26 12:19] LABS: Alanine Aminotransferase 18 U/L (0-31); Albumin Level 4.9 g/dL (3.5-5.0); Alkaline Phosphatase 65 U/L (39-117); Anion Gap 14 (12-20); Aspartate Amino Transferase 20 U/L (5-31); Blood Urea Nitrogen 16 mg/dL (9-16); Calcium 9.8 mg/dL (8.4-10.2); Carbon Dioxide 27 mmol/L (22-29); Chloride 106 mmol/L (96-108); Cholesterol 108 mg/dL (<200); Estimated Glomerular Filt Rate > 60; Free T4 (Free Thyroxine) 0.88 ng/dL (0.71-1.85); HDL Cholesterol 44 mg/dL (>40); Potassium 4.5 mmol/L (3.3-5.1); Sodium 142 mmol/L (135-145); Thyroid Stimulating Hormone 0.88 uIU/mL (0.32-4.0); Total Protein 7.8 g/dL (6.5-8.0); Triglycerides 140 mg/dL (<150)
[2025-09-26 12:23] LABS: Vitamin B12 285 pg/mL (200-900)
[2025-09-26 17:21] LABS: Microalbum/Creatinine Ratio Ur 12.9 ug/mg cr (<30)
== END 2025-09-26 09:56 | disposition home or self-care (01) ==
LOC: HO.HHCL 09:55
PROVIDERS: PCP Family Medicine; Visit Provider Family Medicine
DX: Z11.4 Encounter for screening for human immunodeficiency virus [HIV] (principal); E11.69 Type 2 diabetes mellitus with other specified complication
CPT/HCPCS: 36415; 80048; 80061; 80076; 82043; 82306; 82570; 82607; 83036; 84439; 84443; 85027; 86592; 86706; 86803; 87340; 87389